=== PATIENT | female | born 1950 | race Caucasian/White ===

== ENCOUNTER 2019-01-03 20:22 | Inpatient (IN) | payer MEDICARE ==
[2019-01-03] MEDS ORDERED: SODIUM CHLORIDE 0.9% 1,000 ML IV STA (20:47)
--- NOTE | 2019-01-03 20:48 | ED ---
General Adult HPI - General Source: patient Mode of arrival: EMS <RajivkhushboomariajoseVeronicae D - Last Filed: 01/03/19 21:21> <SalesMarcella - Last Filed: 01/04/19 08:16> - General Chief complaint: Fall Stated complaint: Weakness Time Seen by Provider: 01/03/19 20:39 - History of Present Illness Initial comments: Dictation was produced using [employer] dictation software. please excuse any grammatical, word or spelling errors. Chief Complaint: Patient is 68-year-old female past medical history of Parkinson's disease, diabetes and hypertension. Patient reports that she fell several hours prior to arrival. History of Present Illness: Patient is 68-year-old female she has past medical history of Parkinson's disease, diabetes and hypertension. She fell at home. She lives at home by herself. She states that she felt dizzy prior to falling. Denies any head trauma or loss of consciousness. She was on the floor for several hours until she was able to get in contact with EMS. Patient is brought here by EMS. She was noted to have hypotension upon arrival. She has a history of hypertension. According to friends who are at bedside she's had multiple falls in the recent past. Patient has no significant plates at this time. She denies any shortness of breath or pain complaints at this time. The ROS documented in this emergency department record has been reviewed and confirmed by me. Those systems with pertinent positive or negative responses have been documented in the HPI. All other systems are other negative and/or noncontributory. PHYSICAL EXAM: General Impression: Alert and oriented x3, not in acute distress HEENT: Normocephalic atraumatic, extra-ocular movements intact, pupils equal and reactive to light bilaterally, mucous membranes moist. Cardiovascular: Heart regular rate and rhythm, S1&S2 audible, no murmurs, rubs or gallops Chest: Lungs clear to auscultation bilaterally, no rhonchi, no wheeze, no rales Abdomen: Bowel sounds present, abdomen soft, non-tender, non-distended, no organomegaly Musculoskeletal: Pulses present and equal in all extremities, no peripheral edema, all extremities ranged with no significant pain Motor: no focal deficits noted Neurological: CN II-XII grossly intact, no focal motor or sensory deficits noted Skin: Ecchymoses over the bilateral anterior knees Psych: Normal affect and mood ED course: 62 female who has been expressing multiple falls in the recent past presents with fall today. Patient is evaluated by EMS for low blood pressure. She is given 500 mL bolus. Upon arrival vital signs shows blood pressure 80/63, worse vital signs within acceptable limits. Physical examination shows well- appearing female with no gross deformities on physical examination. Patient care signed out to Dr. Sales (Vu Steve) - Related Data Home Medications Medication Instructions Recorded Confirmed Aspirin EC [Ecotrin Low Dose] 81 mg PO DAILY 01/03/19 01/03/19 Atenolol [Tenormin] 25 mg PO DAILY 01/03/19 01/03/19 Carbidopa-Levodopa 25-100 mg 1 dose PO DIRECTED 01/03/19 01/03/19 [Sinemet 25-100] Escitalopram [Lexapro] 20 mg PO DAILY 01/03/19 01/03/19 LORazepam [Ativan] 1 mg PO TID 01/03/19 01/03/19 Meloxicam [Mobic] 15 mg PO DAILY 01/03/19 01/03/19 Olmesartan/Hydrochlorothiazide 1 tab PO DAILY 01/03/19 01/03/19 [Benicar Hct 40-25 mg Tablet] Pantoprazole Sodium [Protonix] 40 mg PO DAILY 01/03/19 01/03/19 Rosuvastatin Calcium [Crestor] 10 mg PO DAILY 01/03/19 01/03/19 Valbenazine Tosylate [Ingrezza] 80 mg PO DAILY 01/03/19 01/03/19 Zolpidem [Ambien] 10 mg PO HS 01/03/19 01/03/19 metFORMIN HCL [Glucophage] 500 mg PO BID 01/03/19 01/03/19 Allergies Allergy/AdvReac Type Severity Reaction Status Date / Time codeine Allergy Nausea & Verified 01/03/19 20:45 Vomiting Penicillins Allergy Rash/Hives Verified 01/03/19 20:45 Review of Systems ROS Other: All systems not noted in ROS Statement are negative. <Vu Steve - Last Filed: 01/03/19 21:21> ROS Other: All systems not noted in ROS Statement are negative. <Marcella Sales - Last Filed: 01/04/19 08:16> ROS Statement: Those systems with pertinent positive or pertinent negative responses have been documented in the HPI. Past Medical History Past Medical History: Diabetes Mellitus, GERD/Reflux, Hypertension Additional Past Medical History / Comment(s): Parkinson's disease History of Any Multi-Drug Resistant Organisms: None Reported Past Surgical History: Section Past Psychological History: Depression Smoking Status: Former smoker Past Alcohol Use History: Occasional Past Drug Use History: None Reported <Vu Steve - Last Filed: 01/03/19 21:21> Course Vital Signs 01/03/19 01/03/19 01/03/19 20:30 21:15 23:00 Temperature 97.3 F L Pulse Rate 71 79 77 Pulse Rate [ It Infrastructure Manager ] Respiratory 16 18 18 Rate Blood Pressure 88/63 97/70 105/78 Blood Pressure [Right Arm] O2 Sat by Pulse 97 96 96 Oximetry 01/04/19 01/04/19 01:17 01:37 Temperature 98.4 F 98.9 F Pulse Rate 59 L Pulse Rate [ 65 It Infrastructure Manager ] Respiratory 18 17 Rate Blood Pressure 99/71 Blood Pressure 96/64 [Right Arm] O2 Sat by Pulse 96 99 Oximetry Medical Decision Making - Lab Data Result diagrams: 01/03/19 21:03 <Vu Steve - Last Filed: 01/03/19 21:21> - Lab Data Result diagrams: 01/04/19 02:46 01/04/19 02:46 <Marcella Sales P - Last Filed: 01/04/19 08:16> - Medical Decision Making Patient care was signed out to me by Dr. Steve, patient had arrived via EMS. Patient has a history of Parkinson's with multiple falls. Patient to follow home today and was on the floor for approximately 2 hours. On arrival patient no acute complaints, labs and imaging were ordered to evaluate for possible injury and rhabdomyolysis given that the patient was on the floor of hours Labs resulted with multiple very significant abnormalities including CPK of nearly 70,000, troponin greater than 12, creatinine of 4 I reviewed the patient's initial EKG which was obtained at 2115, rate is 67, rhythm is sinus there is a leftward deviation there are normal intervals, CO 156, QRS 76, QTC is prolonged at 534 there is no obvious ST elevations or depressions there is T-wave inversions laterally no evidence of acute ischemia or infarction. Given that significantly elevated troponin a repeat EKG was obtained, EKG was obtained at 2325, rate is 64 distal a leftward axis deviation, normal intervals, CO 160, QRS 82, QTc 509. T-wave inversions persist however there is no ST elevations or depressions and again no evidence of acute ischemia or infarction. (Marcella Sales) - Lab Data Lab Results 01/03/19 01/03/19 01/03/19 Range/Units 21:03 21:03 21:03 WBC 19.4 H (3.8-10.6) k/uL RBC 4.25 (3.80-5.40) m/uL Hgb 13.5 (11.4-16.0) gm/dL Hct 39.1 (34.0-46.0) % MCV 92.0 (80.0-100.0) fL MCH 31.8 (25.0-35.0) pg MCHC 34.6 (31.0-37.0) g/dL RDW 13.6 (11.5-15.5) % Plt Count 299 (150-450) k/uL Neutrophils % 89 % Lymphocytes % 6 % Monocytes % 5 % Eosinophils % 1 % Basophils % 0 % Neutrophils # 17.2 H (1.3-7.7) k/uL Lymphocytes # 1.1 (1.0-4.8) k/uL Monocytes # 0.9 (0-1.0) k/uL Eosinophils # 0.1 (0-0.7) k/uL Basophils # 0.0 (0-0.2) k/uL PT (9.0-12.0) sec INR (<1.2) Sodium 140 (137-145) mmol/L Potassium 4.9 (3.5-5.1) mmol/L Chloride 103 (98-107) mmol/L Carbon Dioxide 19 L (22-30) mmol/L Anion Gap 18 mmol/L BUN 59 H (7-17) mg/dL Creatinine 4.03 H (0.52-1.04) mg/dL Est GFR (CKD-EPI)AfAm 13 (>60 ml/min/1.73 sqM) Est GFR (CKD-EPI)NonAf 11 (>60 ml/min/1.73 sqM) Glucose 143 H (74-99) mg/dL Lactic Ac Sepsis Rflx Plasma Lactic Acid Jama 3.7 H* (0.7-2.0) mmol/L Calcium 9.3 (8.4-10.2) mg/dL Magnesium 2.6 H (1.6-2.3) mg/dL Total Bilirubin 0.5 (0.2-1.3) mg/dL AST 1363 H (14-36) U/L ALT 43 (9-52) U/L Alkaline Phosphatase 42 (38-126) U/L Creatine Kinase 96251 H* (30-135) U/L Troponin I (0.000-0.034) ng/mL Total Protein 6.5 (6.3-8.2) g/dL Albumin 4.5 (3.5-5.0) g/dL Urine Color Urine Appearance (Clear) Urine pH (5.0-8.0) Ur Specific [place] (1.001-1.035) Urine Protein (Negative) Urine Glucose (UA) (Negative) Urine Ketones (Negative) Urine Blood (Negative) Urine Nitrite (Negative) Urine Bilirubin (Negative) Urine Urobilinogen (<2.0) mg/dL Ur Leukocyte Esterase (Negative) Urine RBC (0-5) /hpf Urine WBC (0-5) /hpf Ur Squamous Epith Cells (0-4) /hpf Urine Bacteria (None) /hpf 01/03/19 01/03/19 01/03/19 Range/Units 21:03 21:03 21:42 WBC (3.8-10.6) k/uL RBC (3.80-5.40) m/uL Hgb (11.4-16.0) gm/dL Hct (34.0-46.0) % MCV (80.0-100.0) fL MCH (25.0-35.0) pg MCHC (31.0-37.0) g/dL RDW (11.5-15.5) % Plt Count (150-450) k/uL Neutrophils % % Lymphocytes % % Monocytes % % Eosinophils % % Basophils % % Neutrophils # (1.3-7.7) k/uL Lymphocytes # (1.0-4.8) k/uL Monocytes # (0-1.0) k/uL Eosinophils # (0-0.7) k/uL Basophils # (0-0.2) k/uL PT 10.4 (9.0-12.0) sec INR 1.0 (<1.2) Sodium (137-145) mmol/L Potassium (3.5-5.1) mmol/L Chloride (98-107) mmol/L Carbon Dioxide (22-30) mmol/L Anion Gap mmol/L BUN (7-17) mg/dL Creatinine (0.52-1.04) mg/dL Est GFR (CKD-EPI)AfAm (>60 ml/min/1.73 sqM) Est GFR (CKD-EPI)NonAf (>60 ml/min/1.73 sqM) Glucose (74-99) mg/dL Lactic Ac Sepsis Rflx Y Plasma Lactic Acid Jama (0.7-2.0) mmol/L Calcium (8.4-10.2) mg/dL Magnesium (1.6-2.3) mg/dL Total Bilirubin (0.2-1.3) mg/dL AST (14-36) U/L ALT (9-52) U/L Alkaline Phosphatase (38-126) U/L Creatine Kinase (30-135) U/L Troponin I 12.500 H* (0.000-0.034) ng/mL Total Protein (6.3-8.2) g/dL Albumin (3.5-5.0) g/dL Urine Color Urine Appearance (Clear) Urine pH (5.0-8.0) Ur Specific [place] (1.001-1.035) Urine Protein (Negative) Urine Glucose (UA) (Negative) Urine Ketones (Negative) Urine Blood (Negative) Urine Nitrite (Negative) Urine Bilirubin (Negative) Urine Urobilinogen (<2.0) mg/dL Ur Leukocyte Esterase (Negative) Urine RBC (0-5) /hpf Urine WBC (0-5) /hpf Ur Squamous Epith Cells (0-4) /hpf Urine Bacteria (None) /hpf 01/04/19 Range/Units 00:05 WBC (3.8-10.6) k/uL RBC (3.80-5.40) m/uL Hgb (11.4-16.0) gm/dL Hct (34.0-46.0) % MCV (80.0-100.0) fL MCH (25.0-35.0) pg MCHC (31.0-37.0) g/dL RDW (11.5-15.5) % Plt Count (150-450) k/uL Neutrophils % % Lymphocytes % % Monocytes % % Eosinophils % % Basophils % % Neutrophils # (1.3-7.7) k/uL Lymphocytes # (1.0-4.8) k/uL Monocytes # (0-1.0) k/uL Eosinophils # (0-0.7) k/uL Basophils # (0-0.2) k/uL PT (9.0-12.0) sec INR (<1.2) Sodium (137-145) mmol/L Potassium (3.5-5.1) mmol/L Chloride (98-107) mmol/L Carbon Dioxide (22-30) mmol/L Anion Gap mmol/L BUN (7-17) mg/dL Creatinine (0.52-1.04) mg/dL Est GFR (CKD-EPI)AfAm (>60 ml/min/1.73 sqM) Est GFR (CKD-EPI)NonAf (>60 ml/min/1.73 sqM) Glucose (74-99) mg/dL Lactic Ac Sepsis Rflx Plasma Lactic Acid Jama (0.7-2.0) mmol/L Calcium (8.4-10.2) mg/dL Magnesium (1.6-2.3) mg/dL Total Bilirubin (0.2-1.3) mg/dL AST (14-36) U/L ALT (9-52) U/L Alkaline Phosphatase (38-126) U/L Creatine Kinase (30-135) U/L Troponin I (0.000-0.034) ng/mL Total Protein (6.3-8.2) g/dL Albumin (3.5-5.0) g/dL Urine Color Light Red Urine Appearance Cloudy H (Clear) Urine pH 5.5 (5.0-8.0) Ur Specific [place] 1.017 (1.001-1.035) Urine Protein 2+ H (Negative) Urine Glucose (UA) Negative (Negative) Urine Ketones 1+ H (Negative) Urine Blood Moderate H (Negative) Urine Nitrite Negative (Negative) Urine Bilirubin Negative (Negative) Urine Urobilinogen <2.0 (<2.0) mg/dL Ur Leukocyte Esterase Small H (Negative) Urine RBC 2 (0-5) /hpf Urine WBC 6 H (0-5) /hpf Ur Squamous Epith Cells 2 (0-4) /hpf Urine Bacteria Few H (None) /hpf Disposition <Vu Steve - Last Filed: 01/03/19 21:21> <Marcella Sales P - Last Filed: 01/04/19 08:16> Clinical Impression: Rhabdomyolysis, Elevated troponin, Acute kidney failure, Fall Disposition: ADMITTED IP TO THIS HOSP Condition: Serious
[2019-01-03 21:16] LABS: Basophils % (A) 0 %; Eosinophils # (A) 0.1 k/uL (0-0.7); Eosinophils % (A) 1 %; HCT 39.1 % (34.0-46.0); HGB 13.5 gm/dL (11.4-16.0); Lymphocytes # (A) 1.1 k/uL (1.0-4.8); Lymphocytes % (A) 6 %; MCH 31.8 pg (25.0-35.0); MCHC 34.6 g/dL (31.0-37.0); Mean Platelet Volume 8.6; Monocytes # (A) 0.9 k/uL (0-1.0); Monocytes % (A) 5 %; Neutrophils # (A) 17.2 k/uL (1.3-7.7); Neutrophils % (A) 89 %; Platelet Count 299 k/uL (150-450); RBC 4.25 m/uL (3.80-5.40); RDW 13.6 % (11.5-15.5); WBC 19.4 k/uL (3.8-10.6)
[2019-01-03 21:23] LABS: Albumin 4.5 g/dL (3.5-5.0); Calcium 9.3 mg/dL (8.4-10.2); Magnesium 2.6 mg/dL (1.6-2.3); Potassium 4.9 mmol/L (3.5-5.1); Total Bilirubin 0.5 mg/dL (0.2-1.3); Total Protein 6.5 g/dL (6.3-8.2)
[2019-01-03 21:30] LABS: Prothrombin Time 10.4 sec (9.0-12.0)
[2019-01-03] MEDS: SODIUM CHLORIDE 0.9% 1,000 ML IV SCH (21:54)
--- NOTE | 2019-01-03 23:15 | CT ---
EXAM: CT Head Without Intravenous Contrast CLINICAL HISTORY: Pain TECHNIQUE: Axial computed tomography images of the head/brain without intravenous contrast. CTDI is 55.97 mGy and DLP is 1324.6 mGy-cm. This CT exam was performed using one or more of the following dose reduction techniques: automated exposure control, adjustment of the mA and/or kV according to patient size, and/or use of iterative reconstruction technique. COMPARISON: No relevant prior studies available. FINDINGS: Brain: No acute infarct, hemorrhage, mass or edema. No significant white matter disease. Ventricles: Unremarkable. No ventriculomegaly. Bones/joints: Unremarkable. No acute fracture. Soft tissues: Unremarkable. Sinuses: Mild mucosal thickening in the paranasal sinuses. Mastoid air cells: Unremarkable as visualized. No mastoid effusion. IMPRESSION: No acute findings. EXAM: CT Cervical Spine Without Intravenous Contrast CLINICAL HISTORY: Pain TECHNIQUE: Axial computed tomography images of the cervical spine without intravenous contrast. CTDI is 55.97 mGy and DLP is 1324.6 mGy-cm. This CT exam was performed using one or more of the following dose reduction techniques: automated exposure control, adjustment of the mA and/or kV according to patient size, and/or use of iterative reconstruction technique. COMPARISON: No relevant prior studies available. FINDINGS: Vertebrae: No acute fracture or traumatic malalignment of the cervical spine. Question tiny nondisplaced avulsion fracture of the posterior right first rib at the costovertebral junction (302-63). Discs/spinal canal/neural foramina: Multilevel degenerative changes. No spinal canal stenosis. Soft tissues: Unremarkable. IMPRESSION: No acute fracture or traumatic malalignment of the cervical spine.
--- NOTE | 2019-01-03 23:33 | XR ---
EXAM: XR Pelvis, 1 or 2 Views CLINICAL HISTORY: Pain TECHNIQUE: Frontal view of the pelvis. COMPARISON: No relevant prior studies available. FINDINGS: Bones/joints: No acute fracture or traumatic malalignment. Degenerative changes of the lower lumbar spine and both hips. Soft tissues: Unremarkable. Vasculature: Phleboliths noted within the pelvis IMPRESSION: No acute fracture or traumatic malalignment.
--- NOTE | 2019-01-03 23:34 | XR ---
EXAM: XR Chest, 1 View CLINICAL HISTORY: Pain TECHNIQUE: Frontal view of the chest. COMPARISON: No relevant prior studies available. FINDINGS: Lungs: Unremarkable. No consolidation. Pleural space: Unremarkable. No pneumothorax. Heart: Unremarkable. No cardiomegaly. Mediastinum: Unremarkable. Bones/joints: Unremarkable. IMPRESSION: Normal chest x-ray.
--- NOTE | 2019-01-03 23:34 | XR ---
EXAM: XR Left Knee, 3 views XR Right Knee, 3 views CLINICAL HISTORY: Pain TECHNIQUE: Three views of the bilateral knees. COMPARISON: No relevant prior studies available. FINDINGS: Bones/joints: Unremarkable. No acute fracture. No dislocation. Soft tissues: Unremarkable. IMPRESSION: Normal bilateral knee x-rays.
[2019-01-04 00:21] LABS: Appearance,Urine Cloudy (Clear); Bacteria,Urine Few /hpf; Bilirubin,Urine Negative (Negative); Blood,Urine Moderate (Negative); Color,Urine Light Red; Glucose,Urine (UA) Negative (Negative); Ketones,Urine 1+ (Negative); Leukocyte Esterase,Urine Small (Negative); Nitrite,Urine Negative (Negative); PH, Urine 5.5 (5.0-8.0); Protein,Urine 2+ (Negative); RBC,Urine 2 /hpf (0-5); Specific Gravity,Urine 1.017 (1.001-1.035); Squamous Epithelial Cell,Urine 2 /hpf (0-4); Urobilinogen,Urine <2.0 mg/dL (<2.0); WBC,Urine 6 /hpf (0-5)
[2019-01-04] MEDS ORDERED: NALOXONE 0.4 MG/ML 1 ML VIAL IV PRN (00:40)
[2019-01-04] MEDS: SODIUM CHLORIDE 0.9% 1,000 ML IV SCH ×5 (00:59→16:15)
[2019-01-04 02:00] LABS: Glucose,Whole Blood 115 mg/dL (75-99)
[2019-01-04 03:21] LABS: Basophils % (A) 0 %; Eosinophils % (A) 0 %; HCT 35.7 % (34.0-46.0); HGB 12.2 gm/dL (11.4-16.0); Lymphocytes % (A) 5 %; MCH 31.7 pg (25.0-35.0); MCHC 34.2 g/dL (31.0-37.0); MCV 92.8 fL (80.0-100.0); Mean Platelet Volume 8.8; Monocytes # (A) 1.1 k/uL (0-1.0); Monocytes % (A) 6 %; Neutrophils # (A) 16.8 k/uL (1.3-7.7); Neutrophils % (A) 88 %; Platelet Count 255 k/uL (150-450); RBC 3.84 m/uL (3.80-5.40); RDW 13.3 % (11.5-15.5)
[2019-01-04 03:35] LABS: Calcium 8.1 mg/dL (8.4-10.2)
[2019-01-04] MEDS ORDERED: SODIUM CHLORIDE 0.9% 1,000 ML IV ONE (05:36)
[2019-01-04] MEDS ORDERED: HEPARIN SODIUM,PORCINE 5,000 UNIT/ML 1 ML VIAL IV ONE (06:21)
[2019-01-04] MEDS ORDERED: HEPARIN SODIUM,PORCINE 5,000 UNIT/ML 1 ML VIAL IV PRN (06:21)
[2019-01-04] MEDS: HEPARIN SOD,PORK IN 0.45% NACL 25,000 UNIT in 0.45% NACL 1 250ML.BAG IV SCH (07:15)
[2019-01-04] MEDS: INSULIN ASPART (NovoLOG) 100 UNIT/ML VIAL SQ SCH ×4 (07:18→21:14)
[2019-01-04 07:24] LABS: Partial Thromboplastin Time 23.2 sec (22.0-30.0); Prothrombin Time 10.5 sec (9.0-12.0)
[2019-01-04 07:28] LABS: Glucose,Whole Blood 106 mg/dL (75-99)
[2019-01-04] MEDS ORDERED: HEPARIN SODIUM,PORCINE 5,000 UNIT/ML 1 ML VIAL SQ SCH (08:00)
[2019-01-04] MEDS: LORazepam 1 MG TAB PO SCH ×3 (08:05→21:16)
[2019-01-04] MEDS: ESCITALOPRAM 20 MG TAB PO SCH (08:05)
[2019-01-04] MEDS: PANTOPRAZOLE 40 MG TABLET PO SCH (08:05)
[2019-01-04] MEDS ORDERED: PANTOPRAZOLE 40 MG/10 ML VIAL IV SCH (09:00)
[2019-01-04] MEDS ORDERED: ATENOLOL 25 MG TAB PO SCH (09:00)
--- NOTE | 2019-01-04 10:45 | P.CNPUL ---
History of Present Illness Consult date: 01/04/19 Requesting physician: Anu Castro Reason for consult: other (Acute rhabdomyolysis) Chief complaint: Status post fall History of present illness: This is a 68-year-old female with known history of Parkinson's disease, hypertension, depression, degenerative joint disease, type 2 diabetes, hyperc holesterolemia, brought in by family members mostly because the patient was found on the floor, and could not get up on her own. Apparently the patient fell while she was walking at her own home, and she was done on the floor for about 8 hours. Patient lives by herself, and according to her she felt unsteady on her feet, and she fell down on her buttock. She had no head trauma, no loss of consciousness, she was found on the floor about 8 hours after her fall. Patient was brought in by EMS, and she was found initially hypotensive upon arrival. Although she has history of hypertension. Patient did have previous history of multiple falls in the past, but this one was the worse. Workup in the ER included chest x-ray, CT of the head and cervical spine, x-rays of the knees, pelvic x-rays, and EKG. Her chest x-ray was normal. CT of the head and cervical spine was negative. X-rays of the knees were normal. Pelvic x-ray showed no evidence of fracture or malalignment. EKG showed mostly normal sinus rhythm, T-wave inversion suspicious for anterior ischemia. Labs in the ER were quite abnormal showing evidence of leukocytosis with WBC count of 19.0. BUN was noted to be 61 creatinine 4.04. CPK 65830, troponin was significantly elevated at 17.7, bicarb was 18, anion gap of 15. Patient was given significant amount of fluids in the ER, placed on 0.9 normal saline at 200 mL/h, admitted to the intensive care unit, and this consult was initiated. During my evaluation, patient was noted to be in no form of distress, very pleasant, and was able to give me a good history as noted above. One family member is at bedside Review of Systems CONSTITUTIONAL: Mostly symptoms of weakness, and difficulty with ambulation. No weight loss. HEENT. Denies headache or blurred vision, denies any earache or sore throat. Denies any vertigo. EYES: No diplopia, no blurred vision, no lid lag.. EARS, NOSE, MOUTH, THROAT, and FACE: No sore throat, no earache. Pulmonary: Denies any cough wheezing or shortness of breath or chest pain. CARDIOVASCULAR: Denies chest pain, palpitation, syncope. GASTROINTESTINAL: Denies vomiting no nausea abdominal pain melena or h ematemesis. GENITOURINARY: Denies any dysuria frequency urgency or hematuria. INTEGUMENT/denies any rashes, denies any itching. HEMATOLOGIC/LYMPHATIC: Denies any clotting bleeding or bruising. MUSCULOSKELTAL: History of degenerative joint disease, and history of Parkinson's disease. NEURLOGICAL: History of Parkinson's disease, no history of dementia. BEHAVIORAL/PSYCH: Denies any symptoms of active depression had remote history of depression. ENDOCRINE: Denies any heat or cold intolerance. Past Medical History Past Medical History: Diabetes Mellitus, GERD/Reflux, Hypertension Additional Past Medical History / Comment(s): Parkinson's disease History of Any Multi-Drug Resistant Organisms: None Reported Past Surgical History: Section Additional Past Anesthesia/Blood Transfusion Reaction / Comment(s): Mild Sleep Apnea per patient Past Psychological History: Depression Smoking Status: Former smoker Past Alcohol Use History: Occasional Additional Past Alcohol Use History / Comment(s): Pt states less then 4 drinks a week Past Drug Use History: None Reported Medications and Allergies Home Medications Medication Instructions Recorded Confirmed Type Aspirin EC [Ecotrin Low Dose] 81 mg PO DAILY 01/03/19 01/03/19 History Atenolol [Tenormin] 25 mg PO DAILY 01/03/19 01/03/19 History Carbidopa-Levodopa 25-100 mg 1 dose PO DIRECTED 01/03/19 01/03/19 History [Sinemet 25-100] Escitalopram [Lexapro] 20 mg PO DAILY 01/03/19 01/03/19 History LORazepam [Ativan] 1 mg PO TID 01/03/19 01/03/19 History Meloxicam [Mobic] 15 mg PO DAILY 01/03/19 01/03/19 History Olmesartan/Hydrochlorothiazide 1 tab PO DAILY 01/03/19 01/03/19 History [Benicar Hct 40-25 mg Tablet] Pantoprazole Sodium [Protonix] 40 mg PO DAILY 01/03/19 01/03/19 History Rosuvastatin Calcium [Crestor] 10 mg PO DAILY 01/03/19 01/03/19 History Valbenazine Tosylate [Ingrezza] 80 mg PO DAILY 01/03/19 01/03/19 History Zolpidem [Ambien] 10 mg PO HS 01/03/19 01/03/19 History metFORMIN HCL [Glucophage] 500 mg PO BID 01/03/19 01/03/19 History Allergies Allergy/AdvReac Type Severity Reaction Status Date / Time codeine Allergy Nausea & Verified 01/03/19 20:45 Vomiting Penicillins Allergy Rash/Hives Verified 01/03/19 20:45 Physical Exam Vitals: Vital Signs Temp Pulse Pulse Resp BP BP Pulse Ox 01/04/19 07:30 54 L 23 85/64 93 L 01/04/19 07:00 56 L 22 88/69 94 L 01/04/19 06:30 54 L 21 94/63 95 01/04/19 06:00 58 L 22 91/62 95 01/04/19 05:30 59 L 22 91/63 95 01/04/19 05:00 61 21 98/65 95 01/04/19 04:30 59 L 18 101/68 95 01/04/19 04:00 98.1 F 63 23 91/63 95 01/04/19 03:30 58 L 21 85/62 96 01/04/19 03:00 60 21 99/65 96 01/04/19 02:30 64 16 96/64 94 L 01/04/19 02:00 98.4 F 64 24 98/72 95 01/04/19 01:49 22 01/04/19 01:37 98.9 F 59 L 17 99/71 99 01/04/19 01:17 98.4 F 65 18 96/64 96 01/03/19 23:00 77 18 105/78 96 01/03/19 21:15 79 18 97/70 96 01/03/19 20:30 97.3 F L 71 16 88/63 97 Intake and Output 01/03/19 01/04/19 01/04/19 22:59 06:59 14:59 Intake Total 2000 200 Output Total 90 10 Balance 1910 190 Intake: IV 1800 200 Sodium Chloride 0.9% 1, 1800 200 000 ml @ 999 mls/hr IV . Q1H1M STA Rx#:[id number] Oral 200 Output: Urine 90 10 Other: Voiding Method Indwelling Catheter Weight 63.503 kg General exam: Revealed a 68-year-old female, very pleasant, in no form of respiratory distress. HEENT: Normocephalic atraumatic, extra-ocular movements intact, pupils equal and reactive to light bilaterally, mucous membranes moist. Cardiovascular: Normal S1 and S2, regular rate and rhythm, no S3 gallop, no murmur. Chest: Lungs: Symmetrical chest expansion, clear breath sound bilaterally no crackles or rhonchi or wheezes. Abdomen: Soft nontender no megaly no rebound no guarding positive bowel sounds. Extremities: Pulses present and equal in all extremities, no peripheral edema, all extremities ranged with no significant pain Motor: no focal deficits noted Neurological: CN II-XII grossly intact, no focal motor or sensory deficits noted, patient is alert oriented 3. Skin: Ecchymoses over the bilateral anterior knees Psych: Normal mood, affect, normal mental status examination. Lymphatics: No lymphadenopathy. Results - Laboratory Findings CBC and BMP: 01/04/19 02:46 01/04/19 02:46 PT/INR, D-dimer PT 10.5 sec (9.0-12.0) 01/04/19 06:46 INR 1.0 (<1.2) 01/04/19 06:46 Abnormal lab findings: Abnormal Labs 01/03/19 01/03/19 01/03/19 21:03 21:03 21:03 WBC 19.4 H Neutrophils # 17.2 H Monocytes # Carbon Dioxide 19 L BUN 59 H Creatinine 4.03 H Glucose 143 H POC Glucose (mg/dL) Plasma Lactic Acid Jama 3.7 H* Calcium Magnesium 2.6 H AST 1363 H Creatine Kinase 18340 H* Troponin I Urine Appearance Urine Protein Urine Ketones Urine Blood Ur Leukocyte Esterase Urine WBC Urine Bacteria 01/03/19 01/04/19 01/04/19 21:03 00:05 01:48 WBC Neutrophils # Monocytes # Carbon Dioxide BUN Creatinine Glucose POC Glucose (mg/dL) 115 H Plasma Lactic Acid Jama Calcium Magnesium AST Creatine Kinase Troponin I 12.500 H* Urine Appearance Cloudy H Urine Protein 2+ H Urine Ketones 1+ H Urine Blood Moderate H Ur Leukocyte Esterase Small H Urine WBC 6 H Urine Bacteria Few H 01/04/19 01/04/19 01/04/19 02:46 02:46 02:46 WBC 19.0 H Neutrophils # 16.8 H Monocytes # 1.1 H Carbon Dioxide BUN Creatinine Glucose POC Glucose (mg/dL) Plasma Lactic Acid Jama Calcium Magnesium AST Creatine Kinase 74657 H* Troponin I 17.700 H* Urine Appearance Urine Protein Urine Ketones Urine Blood Ur Leukocyte Esterase Urine WBC Urine Bacteria 01/04/19 01/04/19 01/04/19 02:46 06:46 06:46 WBC Neutrophils # Monocytes # Carbon Dioxide 18 L BUN 61 H Creatinine 4.04 H Glucose 100 H POC Glucose (mg/dL) Plasma Lactic Acid Jama Calcium 8.1 L Magnesium AST Creatine Kinase 33727 H* Troponin I 17.400 H* Urine Appearance Urine Protein Urine Ketones Urine Blood Ur Leukocyte Esterase Urine WBC Urine Bacteria 01/04/19 07:17 WBC Neutrophils # Monocytes # Carbon Dioxide BUN Creatinine Glucose POC Glucose (mg/dL) 106 H Plasma Lactic Acid Jama Calcium Magnesium AST Creatine Kinase Troponin I Urine Appearance Urine Protein Urine Ketones Urine Blood Ur Leukocyte Esterase Urine WBC Urine Bacteria - Diagnostic Findings Chest x-ray: image reviewed (As noted in HPI.) Additional studies: Multiple studies were reviewed including CT of the head and cervical spine, x- rays of the knees and the pelvic area, and EKG. Please refer to HPI. Assessment and Plan Assessment: Impression: 1 acute rhabdomyolysis. Secondary to fall. Secondary to underlying Parkinson's disease. 2 possible acute non-ST elevation myocardial infarction 3 acute kidney injury, secondary to acute rhabdomyolysis. 4 history of Parkinson's disease, and difficulty ambulating on her own. 5 history of hypercholesterolemia 6 history of type 2 diabetes. 7 history of benign essential hypertension 8 history of GERD Recommendation: Agree with the present treatment plan including IV fluids, close monitoring of her sugars, renal profile, continue her usual meds for Parkinson's disease, insulin subcu as per protocol based on Accu-Cheks. Continue heparin for elevated troponin, and this is being addressed by cardiology. We'll continue to monitor in the ICU, and will follow closely. Discussed her condition with cardiology on the case. Time with Patient: Greater than 30
[2019-01-04 12:02] LABS: Glucose,Whole Blood 116 mg/dL (75-99)
--- NOTE | 2019-01-04 12:08 | P.HPIM ---
History of Present Illness H&P Date: 01/04/19 Chief Complaint: Rhabdomyolysis This is 68 years old female with past medical history significant for Parkinson disease presents to the emergency department after sustaining fall at home. Patient was able to make a phone call and call 911 few hours after falling on the floor and was brought into the emergency department with multiple bruises on her body worse on the left knee. Patient was alert awake and oriented at baseline mental status able to provide information and still at baseline mental status. Patient was on the floor for several hours and sure about the exact time of fall denied loss of consciousness and think that it was mechanical to start with. Patient denied head trauma. Patient had multiple falls in the past due to her Parkinson disease but nothing significant to the point where she was on the floor a few hours. Patient is denying and recent urinary tract infection recent upper respiratory symptoms including chest pain shortness breath nausea vomiting or nasal drainage. Patient denied any recent change in her medication. Patient is denying constitutional symptoms including night sweats low-grade fever or weight loss. Patient currently is improved and saying that she feels much improved since admission. Patient was admitted to the intensive care unit due to diagnosis of acute kidney injury with rhabdomyolysis and was started on a ggressive IV hydration and electrolyte replacement protocol. Patient is denying tobacco alcohol or drug abuse Review of Systems All 14 systems reviewed and negative except as above Past Medical History Past Medical History: Diabetes Mellitus, GERD/Reflux, Hypertension Additional Past Medical History / Comment(s): Parkinson's disease History of Any Multi-Drug Resistant Organisms: None Reported Past Surgical History: Section Additional Past Anesthesia/Blood Transfusion Reaction / Comment(s): Mild Sleep Apnea per patient Past Psychological History: Depression Smoking Status: Former smoker Past Alcohol Use History: Occasional Additional Past Alcohol Use History / Comment(s): Pt states less then 4 drinks a week Past Drug Use History: None Reported Medications and Allergies Home Medications Medication Instructions Recorded Confirmed Type Aspirin EC [Ecotrin Low Dose] 81 mg PO DAILY 01/03/19 01/03/19 History Atenolol [Tenormin] 25 mg PO DAILY 01/03/19 01/03/19 History Carbidopa-Levodopa 25-100 mg 1 dose PO DIRECTED 01/03/19 01/03/19 History [Sinemet 25-100] Escitalopram [Lexapro] 20 mg PO DAILY 01/03/19 01/03/19 History LORazepam [Ativan] 1 mg PO TID 01/03/19 01/03/19 History Meloxicam [Mobic] 15 mg PO DAILY 01/03/19 01/03/19 History Olmesartan/Hydrochlorothiazide 1 tab PO DAILY 01/03/19 01/03/19 History [Benicar Hct 40-25 mg Tablet] Pantoprazole Sodium [Protonix] 40 mg PO DAILY 01/03/19 01/03/19 History Rosuvastatin Calcium [Crestor] 10 mg PO DAILY 01/03/19 01/03/19 History Valbenazine Tosylate [Ingrezza] 80 mg PO DAILY 01/03/19 01/03/19 History Zolpidem [Ambien] 10 mg PO HS 01/03/19 01/03/19 History metFORMIN HCL [Glucophage] 500 mg PO BID 01/03/19 01/03/19 History Allergies Allergy/AdvReac Type Severity Reaction Status Date / Time codeine Allergy Nausea & Verified 01/03/19 20:45 Vomiting Penicillins Allergy Rash/Hives Verified 01/03/19 20:45 Physical Exam Vitals: Vital Signs Temp Pulse Pulse Resp BP BP Pulse Ox 01/04/19 11:30 60 22 99/69 94 L 01/04/19 11:00 58 L 25 H 90/66 91 L 01/04/19 10:30 55 L 24 99/66 01/04/19 10:00 57 L 27 H 100/66 01/04/19 09:30 66 18 107/74 95 01/04/19 09:00 61 23 91/68 94 L 01/04/19 08:30 56 L 22 94/63 93 L 01/04/19 08:00 98.3 F 57 L 23 91/67 94 L 01/04/19 07:30 54 L 23 85/64 93 L 01/04/19 07:00 56 L 22 88/69 94 L 01/04/19 06:30 54 L 21 94/63 95 01/04/19 06:00 58 L 22 91/62 95 01/04/19 05:30 59 L 22 91/63 95 01/04/19 05:00 61 21 98/65 95 01/04/19 04:30 59 L 18 101/68 95 01/04/19 04:00 98.1 F 63 23 91/63 95 01/04/19 03:30 58 L 21 85/62 96 01/04/19 03:00 60 21 99/65 96 01/04/19 02:30 64 16 96/64 94 L 01/04/19 02:00 98.4 F 64 24 98/72 95 01/04/19 01:49 22 01/04/19 01:37 98.9 F 59 L 17 99/71 99 01/04/19 01:17 98.4 F 65 18 96/64 96 01/03/19 23:00 77 18 105/78 96 01/03/19 21:15 79 18 97/70 96 01/03/19 20:30 97.3 F L 71 16 88/63 97 Intake and Output 01/03/19 01/04/19 01/04/19 22:59 06:59 14:59 Intake Total 2000 800 Output Total 90 50 Balance 1910 750 Intake: IV 1800 800 Sodium Chloride 0.9% 1, 600 000 ml @ 200 mls/hr IV . Q5H RONAL Rx#:[id number] Sodium Chloride 0.9% 1, 1800 200 000 ml @ 999 mls/hr IV . Q1H1M STA Rx#:[id number] Oral 200 Output: Urine 90 50 Other: Voiding Method Indwelling Catheter # Bowel Movements 1 Weight 63.503 kg 63.503 kg Gen.: in stated age, no acute distress Heart: Normal S1-S2 Lungs: Clear to auscultation bilaterally Abdomen: Soft, no tenderness, positive bowel sounds in all 4 quadrant no guarding or rebound Skin: No new rash, multiple bruises on the entire body Psych: Alert and oriented 3 Neuro: No focal deficit Left knee swelling with bruising still intact range of motion with some limitation due to discomfort pulses are positive bilaterally Results CBC & Chem 7: 01/04/19 02:46 01/04/19 02:46 Labs: Abnormal Lab Results - Last 24 Hours (Table) 01/03/19 01/03/19 01/03/19 Range/Units 21:03 21:03 21:03 WBC 19.4 H (3.8-10.6) k/uL Neutrophils # 17.2 H (1.3-7.7) k/uL Monocytes # (0-1.0) k/uL Carbon Dioxide 19 L (22-30) mmol/L BUN 59 H (7-17) mg/dL Creatinine 4.03 H (0.52-1.04) mg/dL Glucose 143 H (74-99) mg/dL POC Glucose (mg/dL) (75-99) mg/dL Plasma Lactic Acid Jama 3.7 H* (0.7-2.0) mmol/L Calcium (8.4-10.2) mg/dL Magnesium 2.6 H (1.6-2.3) mg/dL AST 1363 H (14-36) U/L Creatine Kinase 55330 H* (30-135) U/L Troponin I (0.000-0.034) ng/mL Urine Appearance (Clear) Urine Protein (Negative) Urine Ketones (Negative) Urine Blood (Negative) Ur Leukocyte Esterase (Negative) Urine WBC (0-5) /hpf Urine Bacteria (None) /hpf 01/03/19 01/04/19 01/04/19 Range/Units 21:03 00:05 01:48 WBC (3.8-10.6) k/uL Neutrophils # (1.3-7.7) k/uL Monocytes # (0-1.0) k/uL Carbon Dioxide (22-30) mmol/L BUN (7-17) mg/dL Creatinine (0.52-1.04) mg/dL Glucose (74-99) mg/dL POC Glucose (mg/dL) 115 H (75-99) mg/dL Plasma Lactic Acid Jama (0.7-2.0) mmol/L Calcium (8.4-10.2) mg/dL Magnesium (1.6-2.3) mg/dL AST (14-36) U/L Creatine Kinase (30-135) U/L Troponin I 12.500 H* (0.000-0.034) ng/mL Urine Appearance Cloudy H (Clear) Urine Protein 2+ H (Negative) Urine Ketones 1+ H (Negative) Urine Blood Moderate H (Negative) Ur Leukocyte Esterase Small H (Negative) Urine WBC 6 H (0-5) /hpf Urine Bacteria Few H (None) /hpf 01/04/19 01/04/19 01/04/19 Range/Units 02:46 02:46 02:46 WBC 19.0 H (3.8-10.6) k/uL Neutrophils # 16.8 H (1.3-7.7) k/uL Monocytes # 1.1 H (0-1.0) k/uL Carbon Dioxide (22-30) mmol/L BUN (7-17) mg/dL Creatinine (0.52-1.04) mg/dL Glucose (74-99) mg/dL POC Glucose (mg/dL) (75-99) mg/dL Plasma Lactic Acid Jama (0.7-2.0) mmol/L Calcium (8.4-10.2) mg/dL Magnesium (1.6-2.3) mg/dL AST (14-36) U/L Creatine Kinase 10385 H* (30-135) U/L Troponin I 17.700 H* (0.000-0.034) ng/mL Urine Appearance (Clear) Urine Protein (Negative) Urine Ketones (Negative) Urine Blood (Negative) Ur Leukocyte Esterase (Negative) Urine WBC (0-5) /hpf Urine Bacteria (None) /hpf 01/04/19 01/04/19 01/04/19 Range/Units 02:46 06:46 06:46 WBC (3.8-10.6) k/uL Neutrophils # (1.3-7.7) k/uL Monocytes # (0-1.0) k/uL Carbon Dioxide 18 L (22-30) mmol/L BUN 61 H (7-17) mg/dL Creatinine 4.04 H (0.52-1.04) mg/dL Glucose 100 H (74-99) mg/dL POC Glucose (mg/dL) (75-99) mg/dL Plasma Lactic Acid Jama (0.7-2.0) mmol/L Calcium 8.1 L (8.4-10.2) mg/dL Magnesium (1.6-2.3) mg/dL AST (14-36) U/L Creatine Kinase 59001 H* (30-135) U/L Troponin I 17.400 H* (0.000-0.034) ng/mL Urine Appearance (Clear) Urine Protein (Negative) Urine Ketones (Negative) Urine Blood (Negative) Ur Leukocyte Esterase (Negative) Urine WBC (0-5) /hpf Urine Bacteria (None) /hpf 01/04/19 Range/Units 07:17 WBC (3.8-10.6) k/uL Neutrophils # (1.3-7.7) k/uL Monocytes # (0-1.0) k/uL Carbon Dioxide (22-30) mmol/L BUN (7-17) mg/dL Creatinine (0.52-1.04) mg/dL Glucose (74-99) mg/dL POC Glucose (mg/dL) 106 H (75-99) mg/dL Plasma Lactic Acid Jama (0.7-2.0) mmol/L Calcium (8.4-10.2) mg/dL Magnesium (1.6-2.3) mg/dL AST (14-36) U/L Creatine Kinase (30-135) U/L Troponin I (0.000-0.034) ng/mL Urine Appearance (Clear) Urine Protein (Negative) Urine Ketones (Negative) Urine Blood (Negative) Ur Leukocyte Esterase (Negative) Urine WBC (0-5) /hpf Urine Bacteria (None) /hpf Microbiology - Last 24 Hours (Table) 01/04/19 00:05 Urine Culture - Preliminary Urine,Voided Thrombosis Risk Factor Assmnt - Choose All That Apply Any of the Below Risk Factors Present?: No Each Risk Factor Represents 2 Points: Age 61-74 years Thrombosis Risk Factor Assessment Total Risk Factor Score: 2 Thrombosis Risk Factor Assessment Level: Low Risk Assessment and Plan Assessment: 1. Rhabdomyolysis. 2. Generalized weakness with frequent falls and multiple bruising. 3. Left knee swelling rule out effusion. 4. Acute kidney injury secondary to above. 5. Leukocytosis without left shift. 6. Parkinson disease, advanced. 7. Severe debility and deconditioning. 8. Hyperlipidemia. 9. Diabetes mellitus type 2 area 10. Hypertension. We'll continue with aggressive IV hydration I provided patients with one liter normal saline to be followed by 200 mL/h and monitor urine output closely consider further boluses based on clinical progress replace electrolytes and repeat chemistry this afternoon. We'll avoid nephrotoxic medication resume home medication with holding parameters placed patient's on insulin sliding scale during this hospital stay continue with ICU monitoring. I would like to order 2-D echo to rule out any wall motion abnormality given the patient's frequent falls which is most likely related to 2 Parkinson disease but I would like to rule out any syncopal episode at the same time as patient is poor historian. I would like to have physical therapy evaluated the patient during this hospital stay and consider consultation for physical medicine and rehab as patient may represent perfect candidate for inpatient rehabitation program given the fact that patient is from home has been declining and may benefit from rehabilitation to go back to home environment. Prognosis remained guarded at this point
[2019-01-04] MEDS: CARBIDOPA-LEVODOPA 25-100 MG 1 EACH TAB PO SCH ×2 (12:53→21:15)
--- NOTE | 2019-01-04 12:59 | P.CRDCN ---
<Sofie Esteves - Last Filed: 01/04/19 12:56> History of Present Illness History of present illness: This is Sofie Esteves PA-C dictating a consult on this patient The patient was interviewed and examined by me IMPRESSION / ASSESSMENT: Rhabdomyolysis Elevated troponins likely secondary to rhabdomyolysis and crossover of very high creatinine kinase, ratio of CPK: troponin of 3:1 does not support ischemia, however we cannot completely rule out previous simultaneous myocardial injury Hypertension Dyslipidemia PLAN: Hold atenolol due to hypotension Hold off on statins due to rhabdomyolysis Continue hydration with IV fluids 2-D echo and Doppler to evaluate cardiac structure and function HPI Patient is a 68-year-old female with a past medical history of Parkinson's disease, diabetes, and hypertension who presented to the emergency department after a fall. Yesterday she fell at home when getting up out of a chair. States she did not lose consciousness, remembers the entire event, and landed on her bottom. Had no preceding dizziness, lightheadedness, chest pain, palpitations, shortness of breath. She laid on the ground for several hours before calling for help. States she's had multiple falls in the past related to weakness. Upon admission she was found to have [place]dom[place] [address], creatinine of 4.04, and elevated troponin 17.7. EKG showed diffuse T-wave inversions. Patient seen and examined resting in bed. Denies any symptoms of chest pain, s hortness of breath, palpitations, dizziness, lightheadedness Denies any history of heart problems or syncope. She is a nonsmoker. ROS: No fevers, chills or rigors, no cough, phlegm or expectoration, no nausea, vomiting or diarrhea, no hematuria, dysuria, no skin lesions. EXAMINATION: Patient's blood pressure has been in the 90s to 100 systolic over 60s diastolic, heart rates in the 50s to 60s, respirations 20, oxygen saturation 95% on room air Patient seen and examined resting in bed, in no acute distress Breath sounds clear to auscultation bilaterally Heart is regular, +S1, +S2, no murmurs appreciated No lower extremity edema No elevated JVD REVIEW OF LABS, ECG & MEDICAL DATA EKG shows sinus rhythm with diffuse T-wave inversions WBC 19, hemoglobin 12.2, potassium 5.0, BUN 61, creatinine 4.04, creatinine kinase 11706, troponin 17.4 Past Medical History Past Medical History: Diabetes Mellitus, GERD/Reflux, Hypertension Additional Past Medical History / Comment(s): Parkinson's disease History of Any Multi-Drug Resistant Organisms: None Reported Past Surgical History: Section Additional Past Anesthesia/Blood Transfusion Reaction / Comment(s): Mild Sleep Apnea per patient Past Psychological History: Depression Smoking Status: Former smoker Past Alcohol Use History: Occasional Additional Past Alcohol Use History / Comment(s): Pt states less then 4 drinks a week Past Drug Use History: None Reported Medications and Allergies Home Medications Medication Instructions Recorded Confirmed Type Aspirin EC [Ecotrin Low Dose] 81 mg PO DAILY 01/03/19 01/03/19 History Atenolol [Tenormin] 25 mg PO DAILY 01/03/19 01/03/19 History Carbidopa-Levodopa 25-100 mg 1 dose PO DIRECTED 01/03/19 01/03/19 History [Sinemet 25-100] Escitalopram [Lexapro] 20 mg PO DAILY 01/03/19 01/03/19 History LORazepam [Ativan] 1 mg PO TID 01/03/19 01/03/19 History Meloxicam [Mobic] 15 mg PO DAILY 01/03/19 01/03/19 History Olmesartan/Hydrochlorothiazide 1 tab PO DAILY 01/03/19 01/03/19 History [Benicar Hct 40-25 mg Tablet] Pantoprazole Sodium [Protonix] 40 mg PO DAILY 01/03/19 01/03/19 History Rosuvastatin Calcium [Crestor] 10 mg PO DAILY 01/03/19 01/03/19 History Valbenazine Tosylate [Ingrezza] 80 mg PO DAILY 01/03/19 01/03/19 History Zolpidem [Ambien] 10 mg PO HS 01/03/19 01/03/19 History metFORMIN HCL [Glucophage] 500 mg PO BID 01/03/19 01/03/19 History Allergies Allergy/AdvReac Type Severity Reaction Status Date / Time codeine Allergy Nausea & Verified 01/03/19 20:45 Vomiting Penicillins Allergy Rash/Hives Verified 01/03/19 20:45 Physical Exam Vitals: Vital Signs Temp Pulse Pulse Resp BP BP Pulse Ox 01/04/19 10:30 55 L 24 99/66 01/04/19 10:00 57 L 27 H 100/66 01/04/19 09:30 66 18 107/74 95 01/04/19 09:00 61 23 91/68 94 L 01/04/19 08:30 56 L 22 94/63 93 L 01/04/19 08:00 98.3 F 57 L 23 91/67 94 L 01/04/19 07:30 54 L 23 85/64 93 L 01/04/19 07:00 56 L 22 88/69 94 L 01/04/19 06:30 54 L 21 94/63 95 01/04/19 06:00 58 L 22 91/62 95 01/04/19 05:30 59 L 22 91/63 95 01/04/19 05:00 61 21 98/65 95 01/04/19 04:30 59 L 18 101/68 95 01/04/19 04:00 98.1 F 63 23 91/63 95 01/04/19 03:30 58 L 21 85/62 96 01/04/19 03:00 60 21 99/65 96 01/04/19 02:30 64 16 96/64 94 L 01/04/19 02:00 98.4 F 64 24 98/72 95 01/04/19 01:49 22 01/04/19 01:37 98.9 F 59 L 17 99/71 99 01/04/19 01:17 98.4 F 65 18 96/64 96 01/03/19 23:00 77 18 105/78 96 01/03/19 21:15 79 18 97/70 96 01/03/19 20:30 97.3 F L 71 16 88/63 97 Intake and Output 01/03/19 01/04/19 01/04/19 22:59 06:59 14:59 Intake Total 2000 800 Output Total 90 50 Balance 1910 750 Intake: IV 1800 800 Sodium Chloride 0.9% 1, 600 000 ml @ 200 mls/hr IV . Q5H [facility] Rx#:[id number] Sodium Chloride 0.9% 1, 1800 200 000 ml @ 999 mls/hr IV . Q1H1M [facility] Rx#:[id number] Oral 200 Output: Urine 90 50 Other: Voiding Method Indwelling Catheter # Bowel Movements 1 Weight 63.503 kg Results 01/04/19 02:46 01/04/19 02:46 Cardiac Enzymes 01/03/19 01/03/19 01/04/19 Range/Units 21:03 21:03 02:46 AST 1363 H (14-36) U/L Troponin I 12.500 H* 17.700 H* (0.000-0.034) ng/mL 01/04/19 Range/Units 06:46 AST (14-36) U/L Troponin I 17.400 H* (0.000-0.034) ng/mL Coagulation 01/03/19 01/04/19 Range/Units 21:03 06:46 PT 10.4 10.5 (9.0-12.0) sec APTT 23.2 (22.0-30.0) sec CBC 01/03/19 01/04/19 Range/Units 21:03 02:46 WBC 19.4 H 19.0 H (3.8-10.6) k/uL RBC 4.25 3.84 (3.80-5.40) m/uL Hgb 13.5 12.2 (11.4-16.0) gm/dL Hct 39.1 35.7 (34.0-46.0) % Plt Count 299 255 (150-450) k/uL Comprehensive Metabolic Panel 01/03/19 01/04/19 Range/Units 21:03 02:46 Sodium 140 140 (137-145) mmol/L Potassium 4.9 5.0 (3.5-5.1) mmol/L Chloride 103 107 (98-107) mmol/L Carbon Dioxide 19 L 18 L (22-30) mmol/L BUN 59 H 61 H (7-17) mg/dL Creatinine 4.03 H 4.04 H (0.52-1.04) mg/dL Glucose 143 H 100 H (74-99) mg/dL Calcium 9.3 8.1 L (8.4-10.2) mg/dL AST 1363 H (14-36) U/L ALT 43 (9-52) U/L Alkaline Phosphatase 42 (38-126) U/L Total Protein 6.5 (6.3-8.2) g/dL Albumin 4.5 (3.5-5.0) g/dL Current Medications Generic Name Dose Route Start Last Admin Trade Name Freq PRN Reason Stop Dose Admin Atenolol 25 mg 01/04/19 09:00 Tenormin PO DAILY [facility] Carbidopa/Levodopa each 01/04/19 05:30 Sinemet 25-100 PO DIRECTED [facility] Carbidopa/Levodopa 0.5 each 01/04/19 09:00 Sinemet Er 25-100 PO 01/06/19 02:00 BID [facility] Escitalopram Oxalate 20 mg 01/04/19 09:00 01/04/19 08:05 Lexapro PO 20 mg DAILY [facility] Administration Heparin Sodium (Porcine) 0 unit 01/04/19 06:21 Heparin IV PER PROTOCOL PRN Low PTT Protocol Sodium Chloride 1,000 mls @ 200 mls/hr 01/03/19 21:30 01/04/19 08:06 Saline 0.9% IV 100 mls/hr .Q5H [facility] Administration Sodium Chloride 1,000 mls @ 100 mls/hr 01/03/19 22:45 01/04/19 06:37 Saline 0.9% IV 200 mls/hr .Q10H [facility] Administration Heparin Sodium/Sodium Chloride 250 mls @ 7.62 mls/hr 01/04/19 06:30 01/04/19 07:15 25,000 unit/ Sodium Chloride IV 12 units/kg/hr .Q24H [facility] 7.62 mls/hr Administration Protocol 12 UNITS/KG/HR Insulin Aspart 0 unit 01/04/19 07:30 01/04/19 07:18 Novolog SQ Not Given ACHS [facility] Protocol Lorazepam 1 mg 01/04/19 09:00 01/04/19 08:05 Ativan PO 1 mg TID [facility] Administration Naloxone HCl 0.2 mg 01/04/19 00:40 Narcan IV Q2M PRN Opioid Reversal Pantoprazole Sodium 40 mg 01/04/19 09:00 01/04/19 08:05 Protonix PO 40 mg DAILY [facility] Administration Intake and Output 01/03/19 01/04/19 01/04/19 22:59 06:59 14:59 Intake Total 2000 800 Output Total 90 50 Balance 1910 750 Intake: IV 1800 800 Sodium Chloride 0.9% 1, 600 000 ml @ 200 mls/hr IV . Q5H [facility] Rx#:[id number] Sodium Chloride 0.9% 1, 1800 200 000 ml @ 999 mls/hr IV . Q1H1M [facility] Rx#:[id number] Oral 200 Output: Urine 90 50 Other: Voiding Method Indwelling Catheter # Bowel Movements 1 Weight 63.503 kg 01/04/19 02:46 01/04/19 02:46 <Alexei Liu - Last Filed: 01/04/19 20:51> History of Present Illness History of present illness: Patient interviewed and examined along with Sofie Esteves PA-C Patient admitted with a fall She is lying on the floor for 8 hours extending her family members but did not mention that she had fallen and needed help Completely asymptomatic from a cardiac standpoint no syncope Peripheral ECG showed T-wave inversions in the lateral precordial leads and high lateral leads Significantly abnormal CPK levels of 69,000, 63,000 And 46,000, Out of proportion to the elevation in troponin levels Elevated troponins with a rising trend of 12, 17 and 17 The ratio of CPK and troponins is unusual 2-D echo and Doppler study revealed severe LV dysfunction with a large anteroapical area of akinesis/severe hypokinesis Is quite likely that this represents both skeletal muscle injury and myocardial injury independently The CPK levels are too high relative to the troponins but given the ECG abnormality in the 2-D echo abnormality is likely that both muscle groups an injured Patient is remarkably asymptomatic. Blood pressure is low and I will switch from atenolol low-dose metoprolol tartrate (5 mg twice daily and gradually ma ximize At this time she has renal failure and IV hydration cautiously would be appropriate. She is in no respiratory distress at all Physical Exam Vitals: Vital Signs Temp Pulse Pulse Resp BP BP Pulse Ox 01/04/19 19:00 53 L 24 91/67 92 L 01/04/19 18:30 53 L 25 H 100/71 94 L 01/04/19 18:00 58 L 24 109/83 94 L 01/04/19 17:30 64 23 94/69 94 L 01/04/19 17:00 52 L 22 95/70 95 01/04/19 16:30 55 L 22 101/70 92 L 01/04/19 16:00 97.8 F 60 16 98/72 94 L 01/04/19 15:30 56 L 16 98/71 92 L 01/04/19 15:00 56 L 22 93/69 92 L 01/04/19 14:30 56 L 22 98/71 92 L 01/04/19 14:00 54 L 23 105/68 93 L 01/04/19 13:30 60 24 99/78 94 L 01/04/19 13:00 65 21 94/62 95 01/04/19 12:30 57 L 21 86/67 93 L 01/04/19 12:00 98 F 57 L 23 97/72 92 L 01/04/19 11:30 60 22 99/69 94 L 01/04/19 11:00 58 L 25 H 90/66 91 L 01/04/19 10:30 55 L 24 99/66 01/04/19 10:00 57 L 27 H 100/66 01/04/19 09:30 66 18 107/74 95 01/04/19 09:00 61 23 91/68 94 L 01/04/19 08:30 56 L 22 94/63 93 L 01/04/19 08:00 98.3 F 57 L 23 91/67 94 L 01/04/19 07:30 54 L 23 85/64 93 L 01/04/19 07:00 56 L 22 88/69 94 L 01/04/19 06:30 54 L 21 94/63 95 01/04/19 06:00 58 L 22 91/62 95 01/04/19 05:30 59 L 22 91/63 95 01/04/19 05:00 61 21 98/65 95 01/04/19 04:30 59 L 18 101/68 95 01/04/19 04:00 98.1 F 63 23 91/63 95 01/04/19 03:30 58 L 21 85/62 96 01/04/19 03:00 60 21 99/65 96 01/04/19 02:30 64 16 96/64 94 L 01/04/19 02:00 98.4 F 64 24 98/72 95 01/04/19 01:49 22 01/04/19 01:37 98.9 F 59 L 17 99/71 99 01/04/19 01:17 98.4 F 65 18 96/64 96 01/03/19 23:00 77 18 105/78 96 01/03/19 21:15 79 18 97/70 96 Intake and Output 01/04/19 01/04/19 01/04/19 06:59 14:59 22:59 Intake Total 2000 1600 1300 Output Total 90 100 90 Balance 1910 1500 1210 Intake: IV 1800 1600 1000 Sodium Chloride 0.9% 1, 1400 1000 000 ml @ 200 mls/hr IV . Q5H [facility] Rx#:[id number] Sodium Chloride 0.9% 1, 1800 200 000 ml @ 999 mls/hr IV . Q1H1M [facility] Rx#:[id number] Oral 200 300 Output: Urine 90 100 90 Other: Voiding Method Indwelling Catheter Indwelling Catheter Indwelling Catheter # Bowel Movements 1 Weight 63.503 kg Results 01/04/19 02:46 01/04/19 02:46 Cardiac Enzymes 01/03/19 01/03/19 01/04/19 Range/Units 21:03 21:03 02:46 AST 1363 H (14-36) U/L Troponin I 12.500 H* 17.700 H* (0.000-0.034) ng/mL 01/04/19 Range/Units 06:46 AST (14-36) U/L Troponin I 17.400 H* (0.000-0.034) ng/mL Coagulation 01/03/19 01/04/19 01/04/19 Range/Units 21:03 06:46 13:04 PT 10.4 10.5 (9.0-12.0) sec APTT 23.2 73.5 H (22.0-30.0) sec CBC 01/03/19 01/04/19 Range/Units 21:03 02:46 WBC 19.4 H 19.0 H (3.8-10.6) k/uL RBC 4.25 3.84 (3.80-5.40) m/uL Hgb 13.5 12.2 (11.4-16.0) gm/dL Hct 39.1 35.7 (34.0-46.0) % Plt Count 299 255 (150-450) k/uL Comprehensive Metabolic Panel 01/03/19 01/04/19 Range/Units 21:03 02:46 Sodium 140 140 (137-145) mmol/L Potassium 4.9 5.0 (3.5-5.1) mmol/L Chloride 103 107 (98-107) mmol/L Carbon Dioxide 19 L 18 L (22-30) mmol/L BUN 59 H 61 H (7-17) mg/dL Creatinine 4.03 H 4.04 H (0.52-1.04) mg/dL Glucose 143 H 100 H (74-99) mg/dL Calcium 9.3 8.1 L (8.4-10.2) mg/dL AST 1363 H (14-36) U/L ALT 43 (9-52) U/L Alkaline Phosphatase 42 (38-126) U/L Total Protein 6.5 (6.3-8.2) g/dL Albumin 4.5 (3.5-5.0) g/dL Current Medications Generic Name Dose Route Start Last Admin Trade Name Freq PRN Reason Stop Dose Admin Carbidopa/Levodopa 0.5 each 01/04/19 13:00 01/04/19 12:53 Sinemet 25-100 PO 01/05/19 23:00 0.5 each BID [facility] Administration Carbidopa/Levodopa 0.5 each 01/06/19 16:00 Sinemet 25-100 PO 01/12/19 23:00 1600,2200 [facility] Carbidopa/Levodopa 1 each 01/06/19 09:00 Sinemet 25-100 PO QAM [facility] Carbidopa/Levodopa 1 each 01/13/19 16:00 Sinemet 25-100 PO 1600 [facility] Carbidopa/Levodopa 0.5 each 01/13/19 21:00 Sinemet 25-100 PO HS [facility] Escitalopram Oxalate 20 mg 01/04/19 09:00 01/04/19 08:05 Lexapro PO 20 mg DAILY [facility] Administration Heparin Sodium (Porcine) 0 unit 01/04/19 06:21 Heparin IV PER PROTOCOL PRN Low PTT Protocol Heparin Sodium/Sodium Chloride 250 mls @ 7.62 mls/hr 01/04/19 06:30 01/04/19 07:15 25,000 unit/ Sodium Chloride IV 12 units/kg/hr .Q24H [facility] 7.62 mls/hr Administration Protocol 12 UNITS/KG/HR Sodium Chloride 1,000 mls @ 75 mls/hr 01/04/19 16:00 01/04/19 16:15 Saline 0.9% IV 75 mls/hr .[id number] [facility] Administration Insulin Aspart 0 unit 01/04/19 07:30 01/04/19 17:01 Novolog SQ Not Given ACHS [facility] Protocol Lorazepam 1 mg 01/04/19 09:00 01/04/19 15:59 Ativan PO 1 mg TID [facility] Administration Metoprolol Tartrate 12.5 mg 01/04/19 21:00 Lopressor PO BID [facility] Naloxone HCl 0.2 mg 01/04/19 00:40 Narcan IV Q2M PRN Opioid Reversal Pantoprazole Sodium 40 mg 01/04/19 09:00 01/04/19 08:05 Protonix PO 40 mg DAILY [facility] Administration Sodium Bicarbonate 650 mg 01/04/19 18:00 01/04/19 17:04 Sodium Bicarbonate Tab PO 650 mg QID [facility] Administration Intake and Output 01/04/19 01/04/19 01/04/19 06:59 14:59 22:59 Intake Total 2000 1600 1300 Output Total 90 100 90 Balance 1910 1500 1210 Intake: IV 1800 1600 1000 Sodium Chloride 0.9% 1, 1400 1000 000 ml @ 200 mls/hr IV . Q5H [facility] Rx#:[id number] Sodium Chloride 0.9% 1, 1800 200 000 ml @ 999 mls/hr IV . Q1H1M [facility] Rx#:[id number] Oral 200 300 Output: Urine 90 100 90 Other: Voiding Method Indwelling Catheter Indwelling Catheter Indwelling Catheter # Bowel Movements 1 Weight 63.503 kg Patient Weight 01/05/19 06:59 Weight 63.503 kg 01/04/19 02:46 01/04/19 02:46
--- NOTE | 2019-01-04 15:49 | P.NPCON ---
History of Present Illness - Reason for Consult Consult date: 01/04/19 acute renal failure - Chief Complaint Rhabdomyolysis and acute kidney injury - History of Present Illness This is a 68-year-old female seen in consultation because of active acute kidney injury secondary to rhabdomyolysis. She is known with parkinsonism diagnosed earlier this year in June 2018, diabetes for the last approximately 10 years. She is unclear as to whether she has any kidney disease should never seen a sanitation lead. She moved to this area about a few months ago therefore her previous records are at [facility]. She has had recent falls and she fell and was unable to move and was immobilized for about 8 hours. She came in with CKs off 60 3641. Troponin was 17. She denies any chest pain, cough fever chills nausea vomiting shortness of breath She has been dieting for the last few months and has last was 40 pounds over the last 6 months. Blood pressure was low because of this and and she continued to take her blood pressure medications. She was also on meloxicam for joint disease and arthritis. No history of seizures she didn't pass out. She could not move because she was weak and tired. Past Medical History Past Medical History: Diabetes Mellitus, GERD/Reflux, Hypertension Additional Past Medical History / Comment(s): Parkinson's disease History of Any Multi-Drug Resistant Organisms: None Reported Past Surgical History: Section Additional Past Anesthesia/Blood Transfusion Reaction / Comment(s): Mild Sleep Apnea per patient Past Psychological History: Depression Smoking Status: Former smoker Past Alcohol Use History: Occasional Additional Past Alcohol Use History / Comment(s): Pt states less then 4 drinks a week Past Drug Use History: None Reported Medications and Allergies Home Medications Medication Instructions Recorded Confirmed Type Aspirin EC [Ecotrin Low Dose] 81 mg PO DAILY 01/03/19 01/03/19 History Atenolol [Tenormin] 25 mg PO DAILY 01/03/19 01/03/19 History Carbidopa-Levodopa 25-100 mg 1 dose PO DIRECTED 01/03/19 01/03/19 History [Sinemet 25-100] Escitalopram [Lexapro] 20 mg PO DAILY 01/03/19 01/03/19 History LORazepam [Ativan] 1 mg PO TID 01/03/19 01/03/19 History Meloxicam [Mobic] 15 mg PO DAILY 01/03/19 01/03/19 History Olmesartan/Hydrochlorothiazide 1 tab PO DAILY 01/03/19 01/03/19 History [Benicar Hct 40-25 mg Tablet] Pantoprazole Sodium [Protonix] 40 mg PO DAILY 01/03/19 01/03/19 History Rosuvastatin Calcium [Crestor] 10 mg PO DAILY 01/03/19 01/03/19 History Valbenazine Tosylate [Ingrezza] 80 mg PO DAILY 01/03/19 01/03/19 History Zolpidem [Ambien] 10 mg PO HS 01/03/19 01/03/19 History metFORMIN HCL [Glucophage] 500 mg PO BID 01/03/19 01/03/19 History Allergies Allergy/AdvReac Type Severity Reaction Status Date / Time codeine Allergy Nausea & Verified 01/03/19 20:45 Vomiting Penicillins Allergy Rash/Hives Verified 01/03/19 20:45 Physical Exam Vitals: Vital Signs Temp Pulse Pulse Resp BP BP Pulse Ox 01/04/19 15:00 56 L 22 93/69 92 L 01/04/19 14:30 56 L 22 98/71 92 L 01/04/19 14:00 54 L 23 105/68 93 L 01/04/19 13:30 60 24 99/78 94 L 01/04/19 13:00 65 21 94/62 95 01/04/19 12:30 57 L 21 86/67 93 L 01/04/19 12:00 98 F 57 L 23 97/72 92 L 01/04/19 11:30 60 22 99/69 94 L 01/04/19 11:00 58 L 25 H 90/66 91 L 01/04/19 10:30 55 L 24 99/66 01/04/19 10:00 57 L 27 H 100/66 01/04/19 09:30 66 18 107/74 95 01/04/19 09:00 61 23 91/68 94 L 01/04/19 08:30 56 L 22 94/63 93 L 01/04/19 08:00 98.3 F 57 L 23 91/67 94 L 01/04/19 07:30 54 L 23 85/64 93 L 01/04/19 07:00 56 L 22 88/69 94 L 01/04/19 06:30 54 L 21 94/63 95 01/04/19 06:00 58 L 22 91/62 95 01/04/19 05:30 59 L 22 91/63 95 01/04/19 05:00 61 21 98/65 95 01/04/19 04:30 59 L 18 101/68 95 01/04/19 04:00 98.1 F 63 23 91/63 95 01/04/19 03:30 58 L 21 85/62 96 01/04/19 03:00 60 21 99/65 96 01/04/19 02:30 64 16 96/64 94 L 01/04/19 02:00 98.4 F 64 24 98/72 95 01/04/19 01:49 22 01/04/19 01:37 98.9 F 59 L 17 99/71 99 01/04/19 01:17 98.4 F 65 18 96/64 96 01/03/19 23:00 77 18 105/78 96 01/03/19 21:15 79 18 97/70 96 01/03/19 20:30 97.3 F L 71 16 88/63 97 Intake and Output 01/04/19 01/04/19 01/04/19 06:59 14:59 22:59 Intake Total 2000 1600 200 Output Total 90 100 20 Balance 1910 1500 180 Intake: IV 1800 1600 200 Sodium Chloride 0.9% 1, 1400 200 000 ml @ 200 mls/hr IV . Q5H [facility] Rx#:[id number] Sodium Chloride 0.9% 1, 1800 200 000 ml @ 999 mls/hr IV . Q1H1M [facility] Rx#:[id number] Oral 200 Output: Urine 90 100 20 Other: Voiding Method Indwelling Catheter Indwelling Catheter Indwelling Catheter # Bowel Movements 1 Weight 63.503 kg On examination she is awake alert oriented. HEENT exam no JVP neck is supple no facial asymmetry Lungs are clear to auscultation with air entry bilaterally Heart sounds are unremarkable for any murmur rub gallop Abdomen is soft nontender no masses felt no organomegaly ascites Extremity exam was no edema There is some bruising on the left guerrero area. Neurologically awake alert oriented no asterixis. She is able to move all her extremities but has profound generalized weakness. No obvious tremors noted at this time. She does have a flat affect the Results - Lab Results Most recent lab results Calcium 8.1 mg/dL (8.4-10.2) L 01/04/19 02:46 Magnesium 2.6 mg/dL (1.6-2.3) H 01/03/19 21:03 01/04/19 02:46 01/04/19 02:46 Assessment and Plan Assessment: Impression 1. Rhabdomyolysis secondary to [place] [address] and acute kidney injury creatinine is 4.04. No previous creatinines available. Additional element of meloxicam as well as low blood pressure contributing to the acute kidney injury. No urine output and therefore IV fluids have been discontinued 2. Mild degree of gap and non-gap acidosis. Etiology is acute kidney injury. Gap is 15 and bicarb is 18. 3. High troponin, 17 4. History of Parkinson's since June 2018 5. History of diabetes for 10 years. 6. History of weight loss of 40 pounds over 6 months with dieting. 7. Hypotension secondary to weight loss and continuation of blood pressure medications. Recommendation 1. Will maintain IV fluid normal saline at 60 an hour. 2. Monitor CK. 3. Monitor calcium and phosphorus. 4. Discussed with patient possible need for dialysis but expect renal function didn't improve in a few days. 5. Start sodium bicarb 650 4 times a day Thank you for this consultation, will continue to follow
[2019-01-04 16:23] LABS: Phosphorus 6.7 mg/dL (2.5-4.5)
--- NOTE | 2019-01-04 16:27 | ECHOF ---
Referral Reason:Low Bp, Rhabdo MEASUREMENTS -------- HEIGHT: 165.1 cm WEIGHT: 63.5 kg BP: 85/64 IVSd: 1.1 cm (0.6 - 1.1) LVIDd: 5.2 cm (3.9 - 5.3) LVPWd: 1.3 cm (0.6 - 1.1) IVSs: 1.3 cm LVIDs: 4.0 cm LVPWs: 1.7 cm RVIDd: 3.3 cm (< 3.3) LAESV Index (A-L): 22.90 ml/m Ao Diam: 3.3 cm (2.0 - 3.7) LA Diam: 3.9 cm (2.7 - 3.8) AV Cusp: 1.7 cm (1.5 - 2.6) EPSS: 1.3 cm MV E Austin: 0.62 m/s MV DecT: 207 ms MV A Austin: 0.94 m/s MV E/A Ratio: 0.66 RAP: 20.00 mmHg RVSP: 35.86 mmHg MV EF SLOPE: 98.74 mm/s (70 - 150) MV EXCURSION: 17.35 mm (> 18.000) FINDINGS -------- Sinus rhythm. This was a technically adequate study. The left ventricular size is normal. There is mild concentric left ventricular hypertrophy. There is moderate global hypokinesis of LV . Overall left ventricular systolic function is moderately im paired with, an EF between 35 - 40 %. Mitral Doppler inflow pattern suggests diastolic filling abno rmality 18.98. The right ventricle is mildly enlarged. Normal LA size by volume 22+/-6 ml/m2. The right atrial size is normal. Interatrial and interventricular septum intact. The aortic valve is trileaflet and appears structurally normal. There is no evidence of aortic regu rgitation. There is no evidence of aortic stenosis. Mild mitral annular calcification present. Mild mitral regurgitation is present. Mild tricuspid regurgitation present. There is mild pulmonary hypertension. The right ventricular systolic pressure, as measured by Doppler, is 35.86mmHg. The pulmonic valve is normal. The aortic root size is normal. The inferior vena cava is dilated with no significant inspiratory collapse which is consistent estima kayce right atrial pressure of >20 mmHg. There is no pericardial effusion. CONCLUSIONS -------- 1. Sinus rhythm. 2. This was a technically adequate study. 3. The left ventricular size is normal. 4. There is mild concentric left ventricular hypertrophy. 5. There is moderate global hypokinesis of LV . 6. Overall left ventricular systolic function is moderately impaired with, an EF between 35 - 40 %. 7. Mitral Doppler inflow pattern suggest diastolic filling abnormality 18.98. 8. The right ventricle is mildly enlarged. 9. Normal LA size by volume 22+/-6 ml/m2. 10. The right atrial size is normal. 11. Interatrial and interventricular septum intact. 12. The aortic valve is trileaflet and appears structurally normal. 13. There is no evidence of aortic regurgitation. 14. There is no evidence of aortic stenosis. 15. Mild mitral annular calcification present. 16. Mild mitral regurgitation is present. 17. Mild tricuspid regurgitation present. 18. There is mild pulmonary hypertension. 19. The right ventricular systolic pressure, as measured by Doppler, is 35.86mmHg. 20. The pulmonic valve is normal. 21. The aortic root size is normal. 22. The inferior vena cava is dilated with no significant inspiratory collapse which is consistent es timated right atrial pressure of >20 mmHg. 23. There is no pericardial effusion. COIL CUTTER: Jossy Ozuna RDCS
[2019-01-04 16:41] LABS: Uric Acid 17.7 mg/dL (3.7-7.4)
[2019-01-04] MEDS: SODIUM BICARBONATE TAB 650 MG TAB PO SCH ×2 (17:04→21:15)
[2019-01-04 17:20] LABS: Glucose,Whole Blood 99 mg/dL (75-99)
[2019-01-04] MEDS ORDERED: RASBURICASE 6 MG in SODIUM CHLORIDE 0.9% 46 ML IV ONE (17:30)
[2019-01-04 20:43] LABS: Glucose,Whole Blood 115 mg/dL (75-99)
[2019-01-04] MEDS: METOPROLOL TARTRATE 12.5 MG TAB PO SCH (21:15)
[2019-01-05 05:59] LABS: Basophils % (A) 0 %; Eosinophils # (A) 0.1 k/uL (0-0.7); Eosinophils % (A) 1 %; HCT 34.1 % (34.0-46.0); HGB 11.2 gm/dL (11.4-16.0); Lymphocytes # (A) 1.3 k/uL (1.0-4.8); Lymphocytes % (A) 8 %; MCH 31.8 pg (25.0-35.0); MCHC 32.8 g/dL (31.0-37.0); MCV 96.8 fL (80.0-100.0); Mean Platelet Volume 9.5; Monocytes # (A) 0.8 k/uL (0-1.0); Monocytes % (A) 5 %; Neutrophils # (A) 13.2 k/uL (1.3-7.7); Neutrophils % (A) 85 %; Platelet Count 201 k/uL (150-450); RBC 3.52 m/uL (3.80-5.40); RDW 13.4 % (11.5-15.5); WBC 15.5 k/uL (3.8-10.6)
[2019-01-05 06:02] LABS: Albumin 2.8 g/dL (3.5-5.0); Calcium 7.7 mg/dL (8.4-10.2); Magnesium 2.3 mg/dL (1.6-2.3); Phosphorus 6.8 mg/dL (2.5-4.5); Potassium 4.6 mmol/L (3.5-5.1); Total Bilirubin 0.3 mg/dL (0.2-1.3); Total Protein 4.7 g/dL (6.3-8.2)
[2019-01-05] MEDS: HEPARIN SOD,PORK IN 0.45% NACL 25,000 UNIT in 0.45% NACL 1 250ML.BAG IV SCH (06:42)
[2019-01-05] MEDS: SODIUM CHLORIDE 0.9% 1,000 ML IV SCH ×2 (06:44→20:59)
[2019-01-05] MEDS: INSULIN ASPART (NovoLOG) 100 UNIT/ML VIAL SQ SCH ×3 (07:12→21:01)
[2019-01-05 07:18] LABS: Glucose,Whole Blood 96 mg/dL (75-99)
[2019-01-05] MEDS: ESCITALOPRAM 20 MG TAB PO SCH (08:03)
[2019-01-05] MEDS: CARBIDOPA-LEVODOPA 25-100 MG 1 EACH TAB PO SCH ×2 (08:04→20:58)
[2019-01-05] MEDS: PANTOPRAZOLE 40 MG TABLET PO SCH (08:04)
[2019-01-05] MEDS: SODIUM BICARBONATE TAB 650 MG TAB PO SCH ×4 (08:04→21:02)
[2019-01-05] MEDS: LORazepam 1 MG TAB PO SCH ×3 (08:04→21:02)
[2019-01-05] MEDS: METOPROLOL TARTRATE 12.5 MG TAB PO SCH ×2 (08:05→21:02)
--- NOTE | 2019-01-05 08:56 | P.PN ---
Subjective Progress Note Date: 01/05/19 Principal diagnosis: This is a 68-year-old female seen in consultation because of acute kidney injury secondary to rhabdomyolysis, meloxicam as well as hypotension from blood pressure medication and recent weight loss from diabetic. She fell and was immobilized for about 8 hours. She came in with CKs off 60 3641. Troponin was 17. She is known with parkinsonism diagnosed earlier this year in June 2018, diabetes for the last approximately 10 years. She is unclear as to whether she has any kidney disease should never seen a validation software facilitator. She moved to this area about a few months ago therefore her previous records are at [facility]. She has had recent falls and she fell and was unable to move and was immobilized for about 8 hours. She is doing better today. No aches and pains. No shortness of breath chest pain nausea vomiting appetite is fair no diarrhea abdominal pain Urine output is picking up last 24 hour urine output is 517 mL although creat inine continues to go up, creatinine went up to 5.1 from 4. Objective - Vital Signs Vital signs: Vital Signs Temp 97 F L 01/05/19 04:00 Pulse 50 L 01/05/19 06:00 Resp 15 01/05/19 06:00 BP 101/72 01/05/19 06:00 Pulse Ox 94 L 01/05/19 06:00 Intake & Output 01/04/19 01/05/19 01/05/19 18:59 06:59 18:59 Intake Total 2700 1278.689 Output Total 165 352 Balance 2535 926.689 Weight 63.503 kg 73.2 kg Intake: IV 2400 1100 Sodium Chloride 0.9% 1, 2200 200 000 ml @ 200 mls/hr IV . Q5H RONAL Rx#:[id number] Sodium Chloride 0.9% 1, 900 000 ml @ 75 mls/hr IV . [id number] RONAL Rx#:[id number] Sodium Chloride 0.9% 1, 200 000 ml @ 999 mls/hr IV . Q1H1M STA Rx#:[id number] Intake, IV Titration 178.689 Amount Heparin Sod,Pork in 0.45% 178.689 NaCl 25,000 unit In 0.45 % NaCl 1 250ml.bag @ 12 UNITS/KG/HR 7.62 mls/hr IV .Q24H RONAL Rx#: [id number] Oral 300 Output: Urine 165 352 Other: Voiding Method Indwelling Catheter Indwelling Catheter Indwelling Catheter # Bowel Movements 1 On examination she is awake alert oriented comfortable HEENT exam no JVP neck is supple no facial asymmetry Lungs are clear to auscultation good air entry bilaterally Heart sounds are unremarkable no murmur rub gallop Abdomen soft nontender Extremity exam reveals trace edema No aches and pains or muscle tenderness Neurologically awake alert oriented no asterixis moves all her extremities but has generalized weakness. No tremors noted - Labs CBC & Chem 7: 01/05/19 05:14 01/05/19 05:14 Labs: Abnormal Lab Results - Last 24 Hours (Table) 01/04/19 01/04/19 01/04/19 Range/Units 06:46 11:40 13:04 WBC (3.8-10.6) k/uL RBC (3.80-5.40) m/uL Hgb (11.4-16.0) gm/dL Neutrophils # (1.3-7.7) k/uL APTT 73.5 H (22.0-30.0) sec Chloride (98-107) mmol/L Carbon Dioxide (22-30) mmol/L BUN (7-17) mg/dL Creatinine (0.52-1.04) mg/dL POC Glucose (mg/dL) 116 H (75-99) mg/dL Uric Acid 17.7 H* (3.7-7.4) mg/dL Calcium (8.4-10.2) mg/dL Phosphorus 6.7 H (2.5-4.5) mg/dL AST (14-36) U/L Total Protein (6.3-8.2) g/dL Albumin (3.5-5.0) g/dL 01/04/19 01/05/19 01/05/19 Range/Units 20:32 05:14 05:14 WBC 15.5 H (3.8-10.6) k/uL RBC 3.52 L (3.80-5.40) m/uL Hgb 11.2 L (11.4-16.0) gm/dL Neutrophils # 13.2 H (1.3-7.7) k/uL APTT (22.0-30.0) sec Chloride 111 H (98-107) mmol/L Carbon Dioxide 17 L (22-30) mmol/L BUN 72 H (7-17) mg/dL Creatinine 5.11 H (0.52-1.04) mg/dL POC Glucose (mg/dL) 115 H (75-99) mg/dL Uric Acid (3.7-7.4) mg/dL Calcium 7.7 L (8.4-10.2) mg/dL Phosphorus 6.8 H (2.5-4.5) mg/dL AST 510 H (14-36) U/L Total Protein 4.7 L (6.3-8.2) g/dL Albumin 2.8 L (3.5-5.0) g/dL 01/05/19 Range/Units 05:14 WBC (3.8-10.6) k/uL RBC (3.80-5.40) m/uL Hgb (11.4-16.0) gm/dL Neutrophils # (1.3-7.7) k/uL APTT 37.8 H (22.0-30.0) sec Chloride (98-107) mmol/L Carbon Dioxide (22-30) mmol/L BUN (7-17) mg/dL Creatinine (0.52-1.04) mg/dL POC Glucose (mg/dL) (75-99) mg/dL Uric Acid (3.7-7.4) mg/dL Calcium (8.4-10.2) mg/dL Phosphorus (2.5-4.5) mg/dL AST (14-36) U/L Total Protein (6.3-8.2) g/dL Albumin (3.5-5.0) g/dL Microbiology - Last 24 Hours (Table) 01/04/19 00:05 Urine Culture - Preliminary Urine,Voided Assessment and Plan Assessment: Impression 1. Acute kidney injury secondary to combination off Rhabdomyolysis secondary [place] [address], additionally from low blood pressure from recent dieting and weight loss of 40 pounds as well as blood pressure medication, and lastly she was taking meloxicam. creatinine was 4.04. No previous creatinines available. . Creatinine went up to 5.1. Urine output is picking up expect renal recovery hopefully in the next few days. 2. Mild degree of gap and non-gap acidosis. Etiology is acute kidney injury. Gap is 15 and bicarb is 18. 3. Acidosis, mostly primary metabolic with bicarb of 17 and 10 secondary to acute kidney injury. 3. High troponin, 17 4. History of Parkinson's since June 2018 5. History of diabetes for 10 years. 6. History of weight loss of 40 pounds over 6 months with dieting. 7. Hypotension secondary to weight loss and continuation of blood pressure medications. Recommendation 1. Will maintain IV fluid normal saline at 75 an hour. 2. Monitor CK. monitor troponin 3. Monitor calcium and phosphorus. currently it is calcium 7.7 and a phosphorus 6.8. Calcium may start going up and phosphorus is down with recovery 4. Discussed with patient possible need for dialysis but expect renal function didn't improve in a few days. 5. Continue sodium bicarb 650 4 times a day
--- NOTE | 2019-01-05 10:52 | P.PN ---
Subjective Progress Note Date: 01/05/19 Principal diagnosis: Rhabdomyolysis Patient continued to be hemodynamically stable no major events reported by nursing staff patient is sitting up in chair tolerating diet with Mena catheter in place and dark urine noted in the bag. Patient is denying chest pain, shortness breath, nausea, vomiting, dumping, dizziness or lightheadedness and asking if she can go home Objective - Vital Signs Vital signs: Vital Signs Temp 98 F 01/05/19 08:00 Pulse 58 L 01/05/19 08:00 Resp 18 01/05/19 08:00 BP 106/81 01/05/19 08:00 Pulse Ox 94 L 01/05/19 08:00 Intake & Output 01/04/19 01/05/19 01/05/19 18:59 06:59 18:59 Intake Total 2700 1278.689 150 Output Total 165 352 50 Balance 2535 926.689 100 Weight 63.503 kg 73.2 kg Intake: IV 2400 1100 150 Sodium Chloride 0.9% 1, 2200 200 000 ml @ 200 mls/hr IV . Q5H RONAL Rx#:[id number] Sodium Chloride 0.9% 1, 900 150 000 ml @ 75 mls/hr IV . [id number] RONAL Rx#:[id number] Sodium Chloride 0.9% 1, 200 000 ml @ 999 mls/hr IV . Q1H1M STA Rx#:[id number] Intake, IV Titration 178.689 Amount Heparin Sod,Pork in 0.45% 178.689 NaCl 25,000 unit In 0.45 % NaCl 1 250ml.bag @ 12 UNITS/KG/HR 7.62 mls/hr IV .Q24H RONAL Rx#: [id number] Oral 300 Output: Urine 165 352 50 Other: Voiding Method Indwelling Catheter Indwelling Catheter Indwelling Catheter # Bowel Movements 1 - Exam Gen.: in stated age, no acute distress Heart: Normal S1-S2 Lungs: Clear to auscultation bilaterally Abdomen: Soft, no tenderness, positive bowel sounds in all 4 quadrant no guarding or rebound Skin: No new rash Psych: Alert and oriented 3 Neuro: No focal deficit Left knee bruising seems to be stable from prior examination - Labs CBC & Chem 7: 01/05/19 05:14 01/05/19 05:14 Labs: Abnormal Lab Results - Last 24 Hours (Table) 01/04/19 01/04/19 01/04/19 Range/Units 06:46 11:40 13:04 WBC (3.8-10.6) k/uL RBC (3.80-5.40) m/uL Hgb (11.4-16.0) gm/dL Neutrophils # (1.3-7.7) k/uL APTT 73.5 H (22.0-30.0) sec Chloride (98-107) mmol/L Carbon Dioxide (22-30) mmol/L BUN (7-17) mg/dL Creatinine (0.52-1.04) mg/dL POC Glucose (mg/dL) 116 H (75-99) mg/dL Uric Acid 17.7 H* (3.7-7.4) mg/dL Calcium (8.4-10.2) mg/dL Phosphorus 6.7 H (2.5-4.5) mg/dL AST (14-36) U/L Creatine Kinase (30-135) U/L Troponin I (0.000-0.034) ng/mL Total Protein (6.3-8.2) g/dL Albumin (3.5-5.0) g/dL 01/04/19 01/05/19 01/05/19 Range/Units 20:32 05:14 05:14 WBC 15.5 H (3.8-10.6) k/uL RBC 3.52 L (3.80-5.40) m/uL Hgb 11.2 L (11.4-16.0) gm/dL Neutrophils # 13.2 H (1.3-7.7) k/uL APTT (22.0-30.0) sec Chloride 111 H (98-107) mmol/L Carbon Dioxide 17 L (22-30) mmol/L BUN 72 H (7-17) mg/dL Creatinine 5.11 H (0.52-1.04) mg/dL POC Glucose (mg/dL) 115 H (75-99) mg/dL Uric Acid (3.7-7.4) mg/dL Calcium 7.7 L (8.4-10.2) mg/dL Phosphorus 6.8 H (2.5-4.5) mg/dL AST 510 H (14-36) U/L Creatine Kinase (30-135) U/L Troponin I (0.000-0.034) ng/mL Total Protein 4.7 L (6.3-8.2) g/dL Albumin 2.8 L (3.5-5.0) g/dL 01/05/19 01/05/19 01/05/19 Range/Units 05:14 05:14 05:14 WBC (3.8-10.6) k/uL RBC (3.80-5.40) m/uL Hgb (11.4-16.0) gm/dL Neutrophils # (1.3-7.7) k/uL APTT 37.8 H (22.0-30.0) sec Chloride (98-107) mmol/L Carbon Dioxide (22-30) mmol/L BUN (7-17) mg/dL Creatinine (0.52-1.04) mg/dL POC Glucose (mg/dL) (75-99) mg/dL Uric Acid (3.7-7.4) mg/dL Calcium (8.4-10.2) mg/dL Phosphorus (2.5-4.5) mg/dL AST (14-36) U/L Creatine Kinase 48934 H* (30-135) U/L Troponin I 7.650 H* (0.000-0.034) ng/mL Total Protein (6.3-8.2) g/dL Albumin (3.5-5.0) g/dL Microbiology - Last 24 Hours (Table) 01/04/19 00:05 Urine Culture - Preliminary Urine,Voided Assessment and Plan Assessment: 1. Rhabdomyolysis. 2. Generalized weakness with frequent falls and multiple bruising. 3. Left knee swelling rule out effusion. 4. Acute kidney injury secondary to above. 5. Leukocytosis without left shift. 6. Parkinson disease, advanced. 7. Severe debility and deconditioning. 8. Hyperlipidemia. 9. Diabetes mellitus type 2 area 10. Hypertension. Creatinine has worsened today but patient still generating decent amount of urine we'll continue monitoring closely, continue gentle hydration was 75 mL of normal saline decided by nephrology, continue close electrolyte watching, repeat her blood work in the morning, continue insulin sliding scale, continue blood pressure medication with holding parameters and hold nephrotoxic medication. Plan discussed with organizational effectiveness consultant on the case
--- NOTE | 2019-01-05 11:13 | P.PN ---
Subjective Progress Note Date: 01/05/19 Principal diagnosis: Acute rhabdomyolysis, and acute kidney injury. This is a 68-year-old female with known history of Parkinson's disease, hypertension, depression, degenerative joint disease, type 2 diabetes, hypercholesterolemia, brought in by family members mostly because the patient was found on the floor, and could not get up on her own. Apparently the patient fell while she was walking at her own home, and she was done on the floor for about 8 hours. Patient lives by herself, and according to her she felt unsteady on her feet, and she fell down on her buttock. She had no head trauma, no loss of consciousness, she was found on the floor about 8 hours after her fall. Patient was brought in by EMS, and she was found initially hypotensive upon arrival. Although she has history of hypertension. Patient did have previous history of multiple falls in the past, but this one was the worse. Workup in the ER included chest x-ray, CT of the head and cervical spine, x-rays of the knees, pelvic x-rays, and EKG. Her chest x-ray was normal. CT of the head and cervical spine was negative. X-rays of the knees were normal. Pelvic x-ray showed no evidence of fracture or malalignment. EKG showed mostly normal sinus rhythm, T-wave inversion suspicious for anterior ischemia. Labs in the ER were quite abnormal showing evidence of leukocytosis with WBC count of 19.0. BUN was noted to be 61 creatinine 4.04. CPK 54502, troponin was significantly elevated at 17.7, bicarb was 18, anion gap of 15. Patient was given significant amount of fluids in the ER, placed on 0.9 normal saline at 200 mL/h, admitted to the intensive care unit, and this consult was initiated. During my evaluation, patient was noted to be in no form of distress, very pleasant, and was able to give me a good history as noted above. One family member is at bedside Patient was reevaluated today on 01/05/2019, remains in the ICU, patient is making a significant improvement compared to yesterday. Her urine output remains very marginal and poor, her CPK however is down to 18,266, and her troponin is drifting down significantly. Patient is feeling better clinically, asymptomatic, and her renal functioning remains poor, worse than yesterday, creatinine is 5.11. BUN is 72. Nephrology is recommending cutting down the IV fluid, presently at 75 mL/h, and potential dialysis was addressed with the patient, however that is to be decided upon in the next couple of days. It will all depend on the potential recovery of her renal status. Again clinically the patient is doing better. Objective - Vital Signs Vital signs: Vital Signs Temp 98 F 01/05/19 08:00 Pulse 58 L 01/05/19 08:00 Resp 18 01/05/19 08:00 BP 106/81 01/05/19 08:00 Pulse Ox 94 L 01/05/19 08:00 Intake & Output 01/04/19 01/05/19 01/05/19 18:59 06:59 18:59 Intake Total 2700 1278.689 150 Output Total 165 352 50 Balance 2535 926.689 100 Weight 63.503 kg 73.2 kg Intake: IV 2400 1100 150 Sodium Chloride 0.9% 1, 2200 200 000 ml @ 200 mls/hr IV . Q5H RONAL Rx#:[id number] Sodium Chloride 0.9% 1, 900 150 000 ml @ 75 mls/hr IV . [id number] RONAL Rx#:[id number] Sodium Chloride 0.9% 1, 200 000 ml @ 999 mls/hr IV . Q1H1M STA Rx#:[id number] Intake, IV Titration 178.689 Amount Heparin Sod,Pork in 0.45% 178.689 NaCl 25,000 unit In 0.45 % NaCl 1 250ml.bag @ 12 UNITS/KG/HR 7.62 mls/hr IV .Q24H RONAL Rx#: [id number] Oral 300 Output: Urine 165 352 50 Other: Voiding Method Indwelling Catheter Indwelling Catheter Indwelling Catheter # Bowel Movements 1 - Exam General exam: Revealed a 68-year-old female, very pleasant, in no form of respiratory distress. HEENT: Normocephalic atraumatic, extra-ocular movements intact, pupils equal and reactive to light bilaterally, mucous membranes moist. Cardiovascular: Normal S1 and S2, regular rate and rhythm, no S3 gallop, no murmur. Chest: Lungs: Symmetrical chest expansion, clear breath sound bilaterally no crackles or rhonchi or wheezes. Abdomen: Soft nontender no megaly no rebound no guarding positive bowel sounds. Extremities: Pulses present and equal in all extremities, no peripheral edema, all extremities ranged with no significant pain Motor: no focal deficits noted Neurological: CN II-XII grossly intact, no focal motor or sensory deficits noted, patient is alert oriented 3. Skin: Ecchymoses over the bilateral anterior knees Psych: Normal mood, affect, normal mental status examination. Lymphatics: No lymphadenopathy. - Labs CBC & Chem 7: 01/05/19 05:14 01/05/19 05:14 Labs: Abnormal Lab Results - Last 24 Hours (Table) 01/04/19 01/04/19 01/04/19 Range/Units 06:46 11:40 13:04 WBC (3.8-10.6) k/uL RBC (3.80-5.40) m/uL Hgb (11.4-16.0) gm/dL Neutrophils # (1.3-7.7) k/uL APTT 73.5 H (22.0-30.0) sec Chloride (98-107) mmol/L Carbon Dioxide (22-30) mmol/L BUN (7-17) mg/dL Creatinine (0.52-1.04) mg/dL POC Glucose (mg/dL) 116 H (75-99) mg/dL Uric Acid 17.7 H* (3.7-7.4) mg/dL Calcium (8.4-10.2) mg/dL Phosphorus 6.7 H (2.5-4.5) mg/dL AST (14-36) U/L Creatine Kinase (30-135) U/L Troponin I (0.000-0.034) ng/mL Total Protein (6.3-8.2) g/dL Albumin (3.5-5.0) g/dL 01/04/19 01/05/19 01/05/19 Range/Units 20:32 05:14 05:14 WBC 15.5 H (3.8-10.6) k/uL RBC 3.52 L (3.80-5.40) m/uL Hgb 11.2 L (11.4-16.0) gm/dL Neutrophils # 13.2 H (1.3-7.7) k/uL APTT (22.0-30.0) sec Chloride 111 H (98-107) mmol/L Carbon Dioxide 17 L (22-30) mmol/L BUN 72 H (7-17) mg/dL Creatinine 5.11 H (0.52-1.04) mg/dL POC Glucose (mg/dL) 115 H (75-99) mg/dL Uric Acid (3.7-7.4) mg/dL Calcium 7.7 L (8.4-10.2) mg/dL Phosphorus 6.8 H (2.5-4.5) mg/dL AST 510 H (14-36) U/L Creatine Kinase (30-135) U/L Troponin I (0.000-0.034) ng/mL Total Protein 4.7 L (6.3-8.2) g/dL Albumin 2.8 L (3.5-5.0) g/dL 01/05/19 01/05/19 01/05/19 Range/Units 05:14 05:14 05:14 WBC (3.8-10.6) k/uL RBC (3.80-5.40) m/uL Hgb (11.4-16.0) gm/dL Neutrophils # (1.3-7.7) k/uL APTT 37.8 H (22.0-30.0) sec Chloride (98-107) mmol/L Carbon Dioxide (22-30) mmol/L BUN (7-17) mg/dL Creatinine (0.52-1.04) mg/dL POC Glucose (mg/dL) (75-99) mg/dL Uric Acid (3.7-7.4) mg/dL Calcium (8.4-10.2) mg/dL Phosphorus (2.5-4.5) mg/dL AST (14-36) U/L Creatine Kinase 02343 H* (30-135) U/L Troponin I 7.650 H* (0.000-0.034) ng/mL Total Protein (6.3-8.2) g/dL Albumin (3.5-5.0) g/dL Microbiology - Last 24 Hours (Table) 01/04/19 00:05 Urine Culture - Preliminary Urine,Voided Assessment and Plan Assessment: Impression: 1 acute rhabdomyolysis. Secondary to fall. Secondary to underlying Parkinson's disease. 2 possible acute non-ST elevation myocardial infarction 3 acute kidney injury, secondary to acute rhabdomyolysis. 4 history of Parkinson's disease, and difficulty ambulating on her own. 5 history of hypercholesterolemia 6 history of type 2 diabetes. 7 history of benign essential hypertension 8 history of GERD Recommendation: Continue IV fluids, close monitoring of renal profile, continue her usual meds for Parkinson's disease, insulin subcu as per protocol based on Accu-Cheks. Continue heparin for elevated troponin, and this is being addressed by cardiology. Consider transferring the patient to a regular medical floor if felt appropriate by other consultants. We'll continue to follow discussed her condition with her and her family as well as with nephrology on the case. Family is wondering whether the patient will require dialysis, it is not clear at this point whether she will or not, but that is to be decided upon in the next few days. Time with Patient: Less than 30
[2019-01-05 11:54] LABS: Glucose,Whole Blood 87 mg/dL (75-99)
--- NOTE | 2019-01-05 13:45 | P.PN ---
<Sofie Esteves - Last Filed: 01/05/19 13:45> Subjective This is Sofie Esteves PA-C dictating a progress note on this patient The patient was interviewed and examined by me as well as by Dr. Liu Case discussed with Dr. Liu and he agrees with the plan of care IMPRESSION / ASSESSMENT: Rhabdomyolysis secondary to a fall, possibly secondary to hypotension, creatinine kinase improving Reduced LV systolic function and elevated troponins, likely secondary to stress cardiomyopathy versus ischemia Acute kidney injury History of hypertension, blood pressure has been borderline hypotensive since admission Diabetes PLAN: Discontinue heparin drip Start aspirin 81 mg daily Start metoprolol 12.5 mg by mouth twice a day, monitor for hypotension and bradycardia Hold off on VALERIA inhibitor due to worsening renal function Hold off on statins for now until rhabdomyolysis improves Cautious hydration Check TSH Further workup for cardiomyopathy after rhabdomyolysis and kidney function improves HPI/interval history Patient is a 68-year-old female with a past medical history of Parkinson's disease who is admitted for treatment of rhabdomyolysis after a fall. She was also found to have elevated troponins and moderate global hypokinesis with an EF between 35-40%. Patient denied any symptoms of chest pain, jaw pain, back pain, shoulder pain, shortness of breath, lightheadedness, dizziness. Denied palpitations or syncope. Patient fall was due to weakness in her legs, Denies recent viral illnesses, bronchitis, fevers, chills. Patient seen and examined resting comfortably in bed. Denies complaints of shortness of breath, chest pain, palpitations, lightheadedness, dizziness. EXAMINATION Patient is afebrile, pulse 58, respirations 18, blood pressure 106/81, oxygen saturation 94% on room air Patient seen and examined resting in bed, appears comfortable, no acute distress Lungs are clear to auscultation bilaterally, no wheezing, rhonchi, crackles Heart is regular, no murmurs appreciated No lower extremity edema No elevated JVD REVIEW OF LABS, ECG WBC 15.5, hemoglobin 11.2, potassium 4.6, BUN 71 from 61, creatinine 5.11 from 4.04 Creatinine kinase 92943 from [id number] Troponin 7.65 from 17.4 EKG showed sinus rhythm with diffuse T-wave inversions Objective - Vital Signs Vital signs: Vital Signs Temp 98 F 01/05/19 08:00 Pulse 58 L 07/14/19 08:00 Resp 18 01/05/19 08:00 BP 106/81 01/05/19 08:00 Pulse Ox 94 L 01/05/19 08:00 Intake & Output 01/04/19 01/05/19 01/05/19 18:59 06:59 18:59 Intake Total 2700 1278.689 150 Output Total 165 352 50 Balance 2535 926.689 100 Weight 63.503 kg 73.2 kg Intake: IV 2400 1100 150 Sodium Chloride 0.9% 1, 2200 200 000 ml @ 200 mls/hr IV . Q5H [facility] Rx#:[id number] Sodium Chloride 0.9% 1, 900 150 000 ml @ 75 mls/hr IV . [id number] [facility] Rx#:[id number] Sodium Chloride 0.9% 1, 200 000 ml @ 999 mls/hr IV . Q1H1M [facility] Rx#:[id number] Intake, IV Titration 178.689 Amount Heparin Sod,Pork in 0.45% 178.689 NaCl 25,000 unit In 0.45 % NaCl 1 250ml.bag @ 12 UNITS/KG/HR 7.62 mls/hr IV .Q24H [facility] Rx#: [id number] Oral 300 Output: Urine 165 352 50 Other: Voiding Method Indwelling Catheter Indwelling Catheter Indwelling Catheter # Bowel Movements 1 - Labs CBC & Chem 7: 01/05/19 05:14 01/05/19 05:14 Labs: Abnormal Lab Results - Last 24 Hours (Table) 01/04/19 01/04/19 01/05/19 Range/Units 06:46 20:32 05:14 WBC 15.5 H (3.8-10.6) k/uL RBC 3.52 L (3.80-5.40) m/uL Hgb 11.2 L (11.4-16.0) gm/dL Neutrophils # 13.2 H (1.3-7.7) k/uL APTT (22.0-30.0) sec Chloride (98-107) mmol/L Carbon Dioxide (22-30) mmol/L BUN (7-17) mg/dL Creatinine (0.52-1.04) mg/dL POC Glucose (mg/dL) 115 H (75-99) mg/dL Uric Acid 17.7 H* (3.7-7.4) mg/dL Calcium (8.4-10.2) mg/dL Phosphorus 6.7 H (2.5-4.5) mg/dL AST (14-36) U/L Creatine Kinase (30-135) U/L Troponin I (0.000-0.034) ng/mL Total Protein (6.3-8.2) g/dL Albumin (3.5-5.0) g/dL 01/05/19 01/05/19 01/05/19 Range/Units 05:14 05:14 05:14 WBC (3.8-10.6) k/uL RBC (3.80-5.40) m/uL Hgb (11.4-16.0) gm/dL Neutrophils # (1.3-7.7) k/uL APTT 37.8 H (22.0-30.0) sec Chloride 111 H (98-107) mmol/L Carbon Dioxide 17 L (22-30) mmol/L BUN 72 H (7-17) mg/dL Creatinine 5.11 H (0.52-1.04) mg/dL POC Glucose (mg/dL) (75-99) mg/dL Uric Acid (3.7-7.4) mg/dL Calcium 7.7 L (8.4-10.2) mg/dL Phosphorus 6.8 H (2.5-4.5) mg/dL AST 510 H (14-36) U/L Creatine Kinase 75574 H* (30-135) U/L Troponin I (0.000-0.034) ng/mL Total Protein 4.7 L (6.3-8.2) g/dL Albumin 2.8 L (3.5-5.0) g/dL 01/05/19 Range/Units 05:14 WBC (3.8-10.6) k/uL RBC (3.80-5.40) m/uL Hgb (11.4-16.0) gm/dL Neutrophils # (1.3-7.7) k/uL APTT (22.0-30.0) sec Chloride (98-107) mmol/L Carbon Dioxide (22-30) mmol/L BUN (7-17) mg/dL Creatinine (0.52-1.04) mg/dL POC Glucose (mg/dL) (75-99) mg/dL Uric Acid (3.7-7.4) mg/dL Calcium (8.4-10.2) mg/dL Phosphorus (2.5-4.5) mg/dL AST (14-36) U/L Creatine Kinase (30-135) U/L Troponin I 7.650 H* (0.000-0.034) ng/mL Total Protein (6.3-8.2) g/dL Albumin (3.5-5.0) g/dL Microbiology - Last 24 Hours (Table) 01/04/19 00:05 Urine Culture - Final Urine,Voided <Alexei Liu - Last Filed: 01/05/19 22:08> Subjective Patient was examined. Still remains completely symptomatic. She is diabetic. Elevated troponins, abnormal ECG with T-wave inversions Noted, 2-D echo shows severe LV dysfunction. No recent viral illness. Recent diagnosis of Kika on's Worsening renal function Rhabdomyolysis at this time Started her on low dose beta blockers Low blood pressure Once renal function improves then we will pursue coronaryAngiography to delineate the epicardial coronary anatomy Impression Skeletal muscle injury Her fall was probably secondary to weakness in the legs secondary to low blood pressure Acute myocardial injury, cause yet to be determined, Abnormal echo abnormal 12- lead ECG, asymptomatic no chest discomfort Acute renal failure Plan Aspirin and statins and low dose beta blockers as tolerated Objective - Vital Signs Vital signs: Vital Signs Temp 98 F 01/05/19 08:00 Pulse 58 L 01/05/19 08:00 Resp 18 01/05/19 08:00 BP 106/81 01/05/19 08:00 Pulse Ox 94 L 01/05/19 08:00 Intake & Output 01/05/19 01/05/19 01/06/19 06:59 18:59 06:59 Intake Total 1278.689 150 Output Total 352 50 Balance 926.689 100 Weight 73.2 kg Intake: IV 1100 150 Sodium Chloride 0.9% 1, 200 000 ml @ 200 mls/hr IV . Q5H [facility] Rx#:[id number] Sodium Chloride 0.9% 1, 900 150 000 ml @ 75 mls/hr IV . [id number] [facility] Rx#:[id number] Intake, IV Titration 178.689 Amount Heparin Sod,Pork in 0.45% 178.689 NaCl 25,000 unit In 0.45 % NaCl 1 250ml.bag @ 12 UNITS/KG/HR 7.62 mls/hr IV .Q24H [facility] Rx#: [id number] Output: Urine 352 50 Other: Voiding Method Indwelling Catheter Indwelling Catheter - Labs CBC & Chem 7: 01/05/19 05:14 01/05/19 05:14 Labs: Abnormal Lab Results - Last 24 Hours (Table) 01/04/19 01/05/19 01/05/19 Range/Units 06:21 05:14 05:14 WBC 15.5 H (3.8-10.6) k/uL RBC 3.52 L (3.80-5.40) m/uL Hgb 11.2 L (11.4-16.0) gm/dL Neutrophils # 13.2 H (1.3-7.7) k/uL APTT (22.0-30.0) sec Chloride 111 H (98-107) mmol/L Carbon Dioxide 17 L (22-30) mmol/L BUN 72 H (7-17) mg/dL Creatinine 5.11 H (0.52-1.04) mg/dL POC Glucose (mg/dL) (75-99) mg/dL Calcium 7.7 L (8.4-10.2) mg/dL Phosphorus 6.8 H (2.5-4.5) mg/dL AST 510 H (14-36) U/L Creatine Kinase (30-135) U/L Troponin I (0.000-0.034) ng/mL Total Protein 4.7 L (6.3-8.2) g/dL Albumin 2.8 L (3.5-5.0) g/dL Stool Occult Blood Positive H (Negative) 01/05/19 01/05/19 01/05/19 Range/Units 05:14 05:14 05:14 WBC (3.8-10.6) k/uL RBC (3.80-5.40) m/uL Hgb (11.4-16.0) gm/dL Neutrophils # (1.3-7.7) k/uL APTT 37.8 H (22.0-30.0) sec Chloride (98-107) mmol/L Carbon Dioxide (22-30) mmol/L BUN (7-17) mg/dL Creatinine (0.52-1.04) mg/dL POC Glucose (mg/dL) (75-99) mg/dL Calcium (8.4-10.2) mg/dL Phosphorus (2.5-4.5) mg/dL AST (14-36) U/L Creatine Kinase 41461 H* (30-135) U/L Troponin I 7.650 H* (0.000-0.034) ng/mL Total Protein (6.3-8.2) g/dL Albumin (3.5-5.0) g/dL Stool Occult Blood (Negative) 01/05/19 01/05/19 Range/Units 17:02 20:20 WBC (3.8-10.6) k/uL RBC (3.80-5.40) m/uL Hgb (11.4-16.0) gm/dL Neutrophils # (1.3-7.7) k/uL APTT (22.0-30.0) sec Chloride (98-107) mmol/L Carbon Dioxide (22-30) mmol/L BUN (7-17) mg/dL Creatinine (0.52-1.04) mg/dL POC Glucose (mg/dL) 100 H 135 H (75-99) mg/dL Calcium (8.4-10.2) mg/dL Phosphorus (2.5-4.5) mg/dL AST (14-36) U/L Creatine Kinase (30-135) U/L Troponin I (0.000-0.034) ng/mL Total Protein (6.3-8.2) g/dL Albumin (3.5-5.0) g/dL Stool Occult Blood (Negative) Microbiology - Last 24 Hours (Table) 01/04/19 00:05 Urine Culture - Final Urine,Voided
[2019-01-05 17:14] LABS: Glucose,Whole Blood 100 mg/dL (75-99)
[2019-01-05 20:31] LABS: Glucose,Whole Blood 135 mg/dL (75-99)
[2019-01-05] MEDS: ASPIRIN 81 MG PO SCH (21:00)
[2019-01-06 05:10] LABS: Basophils % (A) 0 %; Eosinophils # (A) 0.1 k/uL (0-0.7); Eosinophils % (A) 2 %; HCT 32.6 % (34.0-46.0); HGB 10.6 gm/dL (11.4-16.0); Lymphocytes # (A) 1.1 k/uL (1.0-4.8); Lymphocytes % (A) 14 %; MCH 31.7 pg (25.0-35.0); MCHC 32.5 g/dL (31.0-37.0); MCV 97.6 fL (80.0-100.0); Mean Platelet Volume 9.1; Monocytes # (A) 0.4 k/uL (0-1.0); Monocytes % (A) 5 %; Neutrophils % (A) 79 %; Platelet Count 169 k/uL (150-450); RBC 3.34 m/uL (3.80-5.40); RDW 13.5 % (11.5-15.5); WBC 7.6 k/uL (3.8-10.6)
[2019-01-06 05:36] LABS: Calcium 7.7 mg/dL (8.4-10.2); Potassium 4.3 mmol/L (3.5-5.1)
[2019-01-06] MEDS: INSULIN ASPART (NovoLOG) 100 UNIT/ML VIAL SQ SCH ×4 (07:27→22:10)
[2019-01-06 07:36] LABS: Glucose,Whole Blood 88 mg/dL (75-99)
[2019-01-06] MEDS: CARBIDOPA-LEVODOPA 25-100 MG 1 EACH TAB PO SCH ×3 (09:07→21:39)
[2019-01-06] MEDS: ASPIRIN 81 MG PO SCH (09:07)
[2019-01-06] MEDS: PANTOPRAZOLE 40 MG TABLET PO SCH (09:07)
[2019-01-06] MEDS: LORazepam 1 MG TAB PO SCH ×2 (09:07→18:00)
[2019-01-06] MEDS: SODIUM CHLORIDE 0.9% 1,000 ML IV SCH ×2 (09:07→23:04)
[2019-01-06] MEDS: SODIUM BICARBONATE TAB 650 MG TAB PO SCH ×4 (09:07→20:51)
[2019-01-06] MEDS: METOPROLOL TARTRATE 12.5 MG TAB PO SCH ×2 (09:08→20:50)
--- NOTE | 2019-01-06 09:58 | P.PN ---
Subjective This is Sofie Esteves PA-C dictating a progress note on this patient The patient was interviewed and examined by me as well as by Dr. Liu Case discussed with Dr. Liu and he agrees with the plan of care IMPRESSION / ASSESSMENT: Rhabdomyolysis secondary to fall, possibly secondary to hypotension Reduced LV systolic function and elevated troponins, likely secondary to stress cardiomyopathy versus ischemia History of hypertension, blood pressure low normal Acute kidney injury Diabetes PLAN: Continue metoprolol 12.5 mg twice a day for treatment of systolic dysfunction, monitor for hypotension and bradycardia and hold for systolic blood pressure less than 90 mmHg and pulse less than 50 bpm Will initiate medical treatment for cardiomyopathy with a ACEs and statins when rhabdomyolysis and kidney function improves Discussed the need for further workup of cardiomyopathy with cardiac cath with patient after rhabdomyolysis and kidney function improved Patient is stable for transfer to telemetry unit from a cardiac standpoint HPI/interval history Patient is a 68-year-old female who presented to the emergency department after a fall and was found to have rhabdomyolysis. She was also found to have elevated troponins as well as LV dysfunction. Patient states she is feeling better today. States she was able to sleep comfortably lying flat, denies orthopnea or PND. Denies any chest pain, lightheadedness, dizziness, palpitations. States she did feel weakness in her legs when she got up out of bed but was not dizzy or lightheaded. No syncope. EXAMINATION Patient was afebrile, pulse 51, respirations 17, blood pressure 100/63, oxygen saturation 94% on room air Patient seen and examined resting comfortably in bed, no acute distress Lungs are clear to auscultation bilaterally, no wheezes, rhonchi, or crackles appreciated Heart is regular, normal S1 normal S2, no murmurs or gallops appreciated No elevated JVD No lower extremity edema REVIEW OF LABS, ECG no ventricular arrhythmias on telemetry WBC 7.6, hemoglobin 10.6, potassium 4.3, BUN 73 from 70, creatinine 5.36 from 5.11 TSH 4.17 Objective - Vital Signs Vital signs: Vital Signs Temp 97.7 F 01/06/19 06:00 Pulse 51 L 01/06/19 06:00 Resp 17 01/06/19 06:00 BP 100/63 01/06/19 06:00 Pulse Ox 94 L 01/06/19 06:00 Intake & Output 01/05/19 01/06/19 01/06/19 18:59 06:59 18:59 Intake Total 750 900 Output Total 350 1230 Balance 400 -330 Weight 76.4 kg Intake: IV 750 900 Sodium Chloride 0.9% 1, 750 900 000 ml @ 75 mls/hr IV . [id number] [facility] Rx#:[id number] Output: Urine 350 1230 Other: Voiding Method Indwelling Catheter Indwelling Catheter - Labs CBC & Chem 7: 01/06/19 04:49 01/06/19 04:49 Labs: Abnormal Lab Results - Last 24 Hours (Table) 01/04/19 01/05/19 01/05/19 Range/Units 06:21 17:02 20:20 RBC (3.80-5.40) m/uL Hgb (11.4-16.0) gm/dL Hct (34.0-46.0) % APTT (22.0-30.0) sec Sodium (137-145) mmol/L Chloride (98-107) mmol/L Carbon Dioxide (22-30) mmol/L BUN (7-17) mg/dL Creatinine (0.52-1.04) mg/dL POC Glucose (mg/dL) 100 H 135 H (75-99) mg/dL Calcium (8.4-10.2) mg/dL Stool Occult Blood Positive H (Negative) 01/05/19 01/06/19 01/06/19 Range/Units 22:47 04:49 04:49 RBC 3.34 L (3.80-5.40) m/uL Hgb 10.6 L (11.4-16.0) gm/dL Hct 32.6 L (34.0-46.0) % APTT 46.1 H (22.0-30.0) sec Sodium 135 L (137-145) mmol/L Chloride 109 H (98-107) mmol/L Carbon Dioxide 18 L (22-30) mmol/L BUN 73 H (7-17) mg/dL Creatinine 5.36 H (0.52-1.04) mg/dL POC Glucose (mg/dL) (75-99) mg/dL Calcium 7.7 L (8.4-10.2) mg/dL Stool Occult Blood (Negative) Microbiology - Last 24 Hours (Table) 01/04/19 00:05 Urine Culture - Final Urine,Voided
[2019-01-06] MEDS: ESCITALOPRAM 20 MG TAB PO SCH (10:53)
--- NOTE | 2019-01-06 11:08 | PN ---
PROGRESS NOTE DATE OF SERVICE: January 06, 2019 This is a 68-year-old female admitted back on January 04. She had a fall secondary to her Parkinson disease and apparently developed acute rhabdomyolysis with acute kidney injury. She was also thought to possibly have an acute non ST-segment elevation myocardial infarction versus a troponin leak, not related to myocardial ischemia, hyperlipidemia, diabetes, hypertension, and GERD. Currently, the patient is doing well. She is resting comfortably. She is not receiving any supplemental oxygen. Her IV is saline at 75 mL an hour. The patient is an overflow patient who could be transferred out to general medical floor. She denies any pain or difficulty breathing. Denies any coughing or wheezing. Denies any phlegm production. No chest pain or chest discomfort. She is pretty much back to baseline. PHYSICAL EXAMINATION: VITAL SIGNS: Currently, her vital signs are reviewed. Temperature 97.7, heart rate 51, respiratory rate 17, blood pressure 100/63, mean 75 and room air saturation 95%. Appears in no acute distress. HEENT: Examination is grossly unremarkable. No supplemental oxygen noted. NECK: Supple. Full range of motion. No adenopathy or thyromegaly. Neck veins are flat. CARDIOVASCULAR: Examination reveals regular rate. Heart rate 60. S1, S2 normal. No murmur. LUNGS: Clear breath sounds equal. No wheezes, rhonchi, or crackles. ABDOMEN: Soft. Bowel sounds are heard. EXTREMITIES: Are intact. No cyanosis, clubbing, or edema. SKIN: Without rash. NEUROLOGIC: Examination is brief but nonfocal. LAB DATA: Lab data is reviewed. White count 7.6, hemoglobin 10.6, hematocrit 32.6, platelet count 169,000. Sodium 135, potassium 4.3 chloride 109, CO2 is 18. Anion gap is 8. BUN and creatinine were 73 and 5.36. Additional laboratory data includes troponins which have been coming down. Most recent troponin 7.650. CK is 18,266. Two days ago, she was 69,038. The rest of the labs look okay. No chest x-ray to speak of. MEDICATIONS: Medications are reviewed. She is currently on aspirin, Sinemet, Lexapro, NovoLog insulin, Ativan, metoprolol, Narcan, Protonix, sodium bicarbonate tablet and the saline IV at 75 mL an hour. Microbiology is all negative. ASSESSMENT: 1. Status post fall, secondary to her Parkinson disease, with development of acute rhabdomyolysis. 2. Possible acute non ST-segment elevation myocardial infarction. 3. Acute kidney injury secondary to acute rhabdomyolysis. 4. History of Parkinson disease with difficulty ambulating. 5. History of hyperlipidemia. 6. Type 2 diabetes. 7. History of benign essential hypertension. 8. History of gastroesophageal reflux disease. PLAN: The patient is doing well. She is currently an overflow patient could be transferred to the general medical floor. Her respiratory status and cardiovascular status are both stable. No additional recommendations are made. We will continue to follow if needed. MMODL / IJN: [id number] /
--- NOTE | 2019-01-06 12:02 | PN ---
PROGRESS NOTE The patient is seen for followup for acute kidney injury. Her serum creatinine has increased to 5.36, although patient has had good urine output. She has had about 80 to 100 mL of urine output per hour. Overall, she states she is feeling well. She denies any nausea, vomiting. The patient is currently maintained on saline at 75 mL an hour. PHYSICAL EXAMINATION: On examination this morning, blood pressure was 100/63, heart rate 51 per minute. Patient is afebrile. EXAMINATION OF THE HEART: S1, S2. EXAMINATION OF THE LUNGS: Bilateral breath sounds are heard. Abdomen is soft, nontender. Examination of the lower extremities shows no significant edema. RN MIDWIFE EXAM: Grossly intact. LABS: Labs show sodium 135, potassium 4.3, chloride 109, BUN 73, serum creatinine 5.36, hemoglobin 10.6 g/dL. ASSESSMENT: 1. Acute kidney injury, nonoliguric. No evidence of obstructive uropathy. UA shows blood and protein. I will send out serologies. Check ultrasound of the kidneys. I do not see that. I have discussed with the patient that if her renal function continues to deteriorate, she will need to start dialysis. Etiology of the acute kidney injury is rhabdomyolysis, hypotension as well as NSAIDs. 2. Metabolic acidosis secondary to renal failure. 3. Hypotension, currently improved. 4. History of Parkinson disease. PLAN: Continue IV fluids. Avoid nephrotoxic agents. Continue the oral sodium bicarb. Check serologies to complete workup. MMODL / IJN: [id number] /
[2019-01-06 12:13] LABS: Glucose,Whole Blood 90 mg/dL (75-99)
--- NOTE | 2019-01-06 14:16 | P.PN ---
Subjective Progress Note Date: 01/06/19 This is 68 years old female with past medical history significant for Parkinson disease presents to the emergency department after sustaining fall at home. Patient was able to make a phone call and call 911 few hours after falling on the floor and was brought into the emergency department with multiple bruises on her body worse on the left knee. Patient was alert awake and oriented at baseline mental status able to provide information and still at baseline mental status. Patient was on the floor for several hours and sure about the exact time of fall denied loss of consciousness and think that it was mechanical to start with. Patient denied head trauma. Patient had multiple falls in the past due to her Parkinson disease but nothing significant to the point where she was on the floor a few hours. Patient is denying and recent urinary tract infection recent upper respiratory symptoms including chest pain shortness breath nausea vomiting or nasal drainage. Patient denied any recent change in her medication. Patient is denying constitutional symptoms including night sweats low-grade fe renato or weight loss. Patient currently is improved and saying that she feels much improved since admission. Patient was admitted to the intensive care unit due to diagnosis of acute kidney injury with rhabdomyolysis and was started on aggressive IV hydration and electrolyte replacement protocol. Patient is denying tobacco alcohol or drug abuse 01/05: Patient continued to be hemodynamically stable no major events reported by nursing staff patient is sitting up in chair tolerating diet with Mena catheter in place and dark urine noted in the bag. Patient is denying chest pain, shortness breath, nausea, vomiting, dumping, dizziness or lightheadedness and asking if she can go home 01/06: Patient remains in the intensive care unit and is now in [address] with telemetry. We will add and consults for psychiatric evaluation of her current medications for bipolar disorder. Patient does state her tremor is better. Has been improved on hospital. Consult with Dr. Magana. Patient is to continue I&O and daily weights. She has had good urine output and 100 mL per hour. Heart rate 56, blood pressure 104/73, pulse ox 95% on 2 L nasal cannula. Repeat BUN 73, creatinine 5.36, sodium 135, potassium 4.3, chloride 109, CO2 18. Patient is followed by nephrology. Serology testing, ultrasound of the kidneys ordered. Patient is continued on IV fluids and oral sodium bicarb. Cardiology is following for stress cardiomyopathy versus ischemia. Patient to be started on Aaron and statins when rhabdomyolysis and kidney function improves. Continue Lopressor 12.5 mg twice daily. Seismic Prospecting Observer following on an as-needed basis. Echocardiogram reveals EF between 35 and 40%, moderate global hypokinesia of the LV, no aortic stenosis, mild mitral regurgitation, mild tricuspid regurgitation, mild pulmonary hypertension. Right ventricular systolic pressure 35.86. Objective - Vital Signs Vital signs: Vital Signs Temp 97.7 F 01/06/19 06:00 Pulse 56 L 01/06/19 10:00 Resp 19 01/06/19 10:00 BP 104/73 01/06/19 10:00 Pulse Ox 95 01/06/19 10:00 Intake & Output 01/05/19 01/06/19 01/06/19 18:59 06:59 18:59 Intake Total 750 900 75 Output Total 350 1230 150 Balance 400 -330 -75 Weight 76.4 kg Intake: IV 750 900 75 Sodium Chloride 0.9% 1, 750 900 75 000 ml @ 75 mls/hr IV . [id number] [facility] Rx#:[id number] Output: Urine 350 1230 150 Other: Voiding Method Indwelling Catheter Indwelling Catheter Indwelling Catheter - Exam Review Of Systems: Constitutional: No fever, no chills, no night sweats. No weight change. No weakness, fatigue or lethargy. No daytime sleepiness. EENT: No headache. No blurred vision or double vision, no loss of vision. No loss of Hearing, no ringing in the ears, no dizziness. No nasal drainage or congestion. No epistaxis. No sore throat. Lungs: No shortness of breath, cough, no sputum production. No wheezing. Cardiovascular: No chest pain, no lower extremity edema. No palpitations. No paroxysmal nocturnal dyspnea. No orthopnea. No lightheadedness or dizziness. No syncopal episodes. Abdominal: No abdominal pain. No nausea, vomiting. No diarrhea. No constipati on. No bloody or tarry stools.. No loss of appetite. Genitourinary: No dysuria, increased frequency, urgency. No urinary retention. Musculoskeletal: No myalgias. No muscle weakness, no gait dysfunction, no frequent falls. No back pain. No neck pain. Integumentary: No wounds, no lesions. No rash or pruritus. No unusual bruising. No change in hair or nails. Neurologic: No aphasia. No facial droop. No change in mentation. No head injury. No headache. No paralysis. No paresthesia. Tremor improved. Psychiatric: No depression. No anxiety. No mood swings. Endocrine: No abnormal blood sugars. No weight change. No excessive sweating or thirst. No cold intolerance. Gen: This is a 68-year-old female. She is resting in a chair and appears to be comfortable and in no acute distress. HEENT: Head is atraumatic, normocephalic. Pupils equal, round. Sclerae is anicteric. NECK: Supple. No JVD. No lymphadenopathy. No thyromegaly. LUNGS: Clear to auscultation. No wheezes or rhonchi. No intercostal retractions. HEART: Regular rate and rhythm. No murmur. ABDOMEN: Soft. Bowel sounds are present. No masses. No tenderness. EXTREMITIES: No pedal edema. No calf tenderness. NEUROLOGICAL: Patient is awake, alert and oriented x3. Cranial nerves 2 through 12 are grossly intact. - Labs CBC & Chem 7: 01/06/19 04:49 01/06/19 04:49 Labs: Abnormal Lab Results - Last 24 Hours (Table) 01/04/19 01/05/19 01/05/19 Range/Units 06:21 17:02 20:20 RBC (3.80-5.40) m/uL Hgb (11.4-16.0) gm/dL Hct (34.0-46.0) % APTT (22.0-30.0) sec Sodium (137-145) mmol/L Chloride (98-107) mmol/L Carbon Dioxide (22-30) mmol/L BUN (7-17) mg/dL Creatinine (0.52-1.04) mg/dL POC Glucose (mg/dL) 100 H 135 H (75-99) mg/dL Calcium (8.4-10.2) mg/dL Stool Occult Blood Positive H (Negative) 01/05/19 01/06/19 01/06/19 Range/Units 22:47 04:49 04:49 RBC 3.34 L (3.80-5.40) m/uL Hgb 10.6 L (11.4-16.0) gm/dL Hct 32.6 L (34.0-46.0) % APTT 46.1 H (22.0-30.0) sec Sodium 135 L (137-145) mmol/L Chloride 109 H (98-107) mmol/L Carbon Dioxide 18 L (22-30) mmol/L BUN 73 H (7-17) mg/dL Creatinine 5.36 H (0.52-1.04) mg/dL POC Glucose (mg/dL) (75-99) mg/dL Calcium 7.7 L (8.4-10.2) mg/dL Stool Occult Blood (Negative) Microbiology - Last 24 Hours (Table) 01/04/19 00:05 Urine Culture - Final Urine,Voided Assessment and Plan Plan: 1. Rhabdomyolysis. 2. Generalized weakness with frequent falls and multiple bruising. 3. Left knee swelling rule out effusion. 4. Acute kidney injury with metabolic acidosis secondary to above. 5. Leukocytosis without left shift. 6. Parkinsonism, followed by Dr. Horan. 7. Severe debility and deconditioning. 8. Hyperlipidemia. 9. Diabetes mellitus type 2. 10. Hypertension, presented with hypotension. 11. Cardiomyopathy of unclear etiology. Cardiology consult appreciated. Patient will need to be started on AARON inhibitor and statin when rhabdomyolysis and kidney function improves. 12. History of bipolar disorder on multiple medications. Consult with psychiatry will be added for advice on medication regime. Continue to monitor electrolytes, renal function, CK, IV fluids at 75 mL of normal saline decided by nephrology, continue sodium bicarb. Avoid nephrotoxic agents. Serology testing and renal ultrasound ordered. Patient will be transferred to the [facility] floor with telemetry. continue close electrolyte watching, repeat her blood work in the morning, continue insulin sliding scale, continue blood pressure medication with holding parameters and hold nephrotoxic medication. Plan discussed with reservoir engineering consultant on the case Discharge plan: Inpatient rehab. Consult with Dr. Magana. Impression and plan of care have been directed as dictated by the signing physician. Joi Bonds nurse practitioner acting as scribe for signing physician.
[2019-01-06 14:20] VITALS: BMI 28.0
--- NOTE | 2019-01-06 15:22 | P.CONS ---
History of Present Illness - Chief Complaint Medical debility - History of Present Illness I had the opportunity see patient for inpatient consultation with regard to medical debility. She was admitted to [facility] January 04 history of fall or falls and syncope. Seen in consultation by Noe More nd who note elevated CPK, acute kidney injury. Note normal x-rays of pelvis, knees, chest. CT of head and negative. CT C-spine demonstrates multilevel DDD. OT reports minimal assistance for upper dressing and functional mobility and transfers and maximal assistance for lower dressing, bathing, toileting. PT moderate assistance for gait 14 feet with roller walker. Previous functional history as elicited from patient: 68-year-old left hand white female is lives in 3 floor condo, alone. Retired. Describes independent with own cooking, laundry, driving, standing shower and gait without device. Denies tobacco or alcohol. Dr. Johsnon is regular doctor. Review of Systems Review of systems: ENT: Denies sneezes or discharge. Eyes: Denies discharge or photophobia. Cardiac: Denies chest pain or palpitation. Pulmonary: Mild shortness of breath. Breast: Denies discharge or lumps. Gastrointestinal: Denies nausea, emesis, constipation, diarrhea. Genitourinary: Denies discharge or frequency. Musculoskeletal: Denies muscle or bone aches. Neurologic: Generalized weakness, lowers more so than uppers. Endocrine: Denies shakes or sweats. Oncology: Denies cancers. Dermatologic: Denies rash, itching, pruritus. ALLERGY/immunology: Denies sneezes, rashes. Past Medical History Past Medical History: Diabetes Mellitus, GERD/Reflux, Hypertension Additional Past Medical History / Comment(s): Parkinson's disease History of Any Multi-Drug Resistant Organisms: None Reported Past Surgical History: Section Additional Past Anesthesia/Blood Transfusion Reaction / Comm: Mild Sleep Apnea per patient Past Psychological History: Depression Smoking Status: Former smoker Past Alcohol Use History: Occasional Additional Past Alcohol Use History / Comment(s): Pt states less then 4 drinks a week Past Drug Use History: None Reported Medications and Allergies Home Medications Medication Instructions Recorded Confirmed Type Aspirin EC [Ecotrin Low Dose] 81 mg PO DAILY 01/03/19 01/03/19 History Atenolol [Tenormin] 25 mg PO DAILY 01/03/19 01/03/19 History Carbidopa-Levodopa 25-100 mg 1 dose PO DIRECTED 01/03/19 01/03/19 History [Sinemet 25-100] Escitalopram [Lexapro] 20 mg PO DAILY 01/03/19 01/03/19 History LORazepam [Ativan] 1 mg PO TID 01/03/19 01/03/19 History Meloxicam [Mobic] 15 mg PO DAILY 01/03/19 01/03/19 History Olmesartan/Hydrochlorothiazide 1 tab PO DAILY 01/03/19 01/03/19 History [Benicar Hct 40-25 mg Tablet] Pantoprazole Sodium [Protonix] 40 mg PO DAILY 01/03/19 01/03/19 History Rosuvastatin Calcium [Crestor] 10 mg PO DAILY 01/03/19 01/03/19 History Valbenazine Tosylate [Ingrezza] 80 mg PO DAILY 01/03/19 01/03/19 History Zolpidem [Ambien] 10 mg PO HS 01/03/19 01/03/19 History metFORMIN HCL [Glucophage] 500 mg PO BID 01/03/19 01/03/19 History Allergies Allergy/AdvReac Type Severity Reaction Status Date / Time codeine Allergy Nausea & Verified 01/03/19 20:45 Vomiting Penicillins Allergy Rash/Hives Verified 01/03/19 20:45 Physical Exam Vitals: Vital Signs Temp Pulse Resp BP Pulse Ox 01/06/19 14:00 59 L 24 54/37 01/06/19 12:00 97.5 F L 56 L 21 115/87 96 01/06/19 10:00 56 L 19 104/73 95 01/06/19 08:00 58 L 22 119/81 01/06/19 06:00 97.7 F 51 L 17 100/63 94 L 01/06/19 02:00 48 L 17 92/70 94 L 01/05/19 22:00 53 L 20 94/64 93 L 01/05/19 20:00 98 F 53 L 15 86/60 96 01/05/19 18:00 59 L 16 105/59 96 01/05/19 16:00 54 L 23 99/76 97 Intake and Output 01/06/19 01/06/19 01/06/19 06:59 14:59 22:59 Intake Total 600 150 Output Total 1080 300 Balance -480 -150 Intake: IV 600 150 Sodium Chloride 0.9% 1, 600 150 000 ml @ 75 mls/hr IV . [id number] [facility] Rx#:[id number] Output: Urine 1080 300 Other: Voiding Method Indwelling Catheter Indwelling Catheter Weight 76.4 kg 76.4 kg Skin: Atrophic, intact. General: Medium build and comfortable appearance. Head: Normocephalic, atraumatic. Eyes: Symmetric. Pupils equal round. Ears: Symmetric. Hearing within normal limits. Mouth: Clear. Neck: Supple. Carotid without bruit. Cardiac: Regular rate and rhythm. Lungs: Clear anteriorly and posteriorly. Abdomen: Soft active nontender. Extremities: Normal tone. Neurological: Mental status: Alert, cooperative, pleasant. Cranial nerves: Symmetric facial tone and trapezius. Motor: Poor elevation all 4 limbs. Sensation: Intact throughout. DTRs: Symmetric and equal throughout. Mobility: Patient reports two-person assistance for transfer from bed to Katie chair, nursing. Results CBC & Chem 7: 01/06/19 04:49 01/06/19 04:49 Labs: Abnormal Lab Results - Last 24 Hours (Table) 01/04/19 01/05/19 01/05/19 Range/Units 06:21 17:02 20:20 RBC (3.80-5.40) m/uL Hgb (11.4-16.0) gm/dL Hct (34.0-46.0) % APTT (22.0-30.0) sec Sodium (137-145) mmol/L Chloride (98-107) mmol/L Carbon Dioxide (22-30) mmol/L BUN (7-17) mg/dL Creatinine (0.52-1.04) mg/dL POC Glucose (mg/dL) 100 H 135 H (75-99) mg/dL Calcium (8.4-10.2) mg/dL Stool Occult Blood Positive H (Negative) 01/05/19 01/06/19 01/06/19 Range/Units 22:47 04:49 04:49 RBC 3.34 L (3.80-5.40) m/uL Hgb 10.6 L (11.4-16.0) gm/dL Hct 32.6 L (34.0-46.0) % APTT 46.1 H (22.0-30.0) sec Sodium 135 L (137-145) mmol/L Chloride 109 H (98-107) mmol/L Carbon Dioxide 18 L (22-30) mmol/L BUN 73 H (7-17) mg/dL Creatinine 5.36 H (0.52-1.04) mg/dL POC Glucose (mg/dL) (75-99) mg/dL Calcium 7.7 L (8.4-10.2) mg/dL Stool Occult Blood (Negative) Microbiology - Last 24 Hours (Table) 01/04/19 00:05 Urine Culture - Final Urine,Voided Assessment and Plan (1) Acute kidney failure Current Visit: Yes Status: Acute Code(s): N17.9 - ACUTE KIDNEY FAILURE, UNSPECIFIED SNOMED Code(s): 03500189 (2) Rhabdomyolysis Current Visit: Yes Status: Acute Code(s): M62.82 - RHABDOMYOLYSIS SNOMED Code(s): 206345439 Plan: Impression: 1. Medical debility. 2. Rhabdomyolysis. 3. Acute kidney injury. 4. Fall or falls. 5. Hypertension. 6. Diabetes. 7. GERD. Constant plan: At this time PT and OT are ongoing. Safety concerns noted. Have discussed possible inpatient rehab with patient she seems agreeable. Noted rehab unit fall today but discharge is planned throughout week.
[2019-01-06 17:09] LABS: Glucose,Whole Blood 91 mg/dL (75-99)
[2019-01-06 20:46] LABS: Glucose,Whole Blood 125 mg/dL (75-99)
[2019-01-06] MEDS: LORazepam 1 MG TAB PO PRN (20:57)
[2019-01-07 07:20] LABS: Glucose,Whole Blood 89 mg/dL (75-99)
[2019-01-07] MEDS: INSULIN ASPART (NovoLOG) 100 UNIT/ML VIAL SQ SCH ×4 (09:05→20:56)
[2019-01-07] MEDS: ESCITALOPRAM 20 MG TAB PO SCH (09:09)
[2019-01-07] MEDS: ASPIRIN 81 MG PO SCH (09:09)
[2019-01-07] MEDS: PANTOPRAZOLE 40 MG TABLET PO SCH (09:09)
[2019-01-07] MEDS: METOPROLOL TARTRATE 12.5 MG TAB PO SCH ×2 (09:09→20:57)
[2019-01-07 10:10] LABS: Potassium 4.1 mmol/L (3.5-5.1)
--- NOTE | 2019-01-07 10:26 | P.PN ---
Subjective Patient is seen in follow for acute kidney injury. Creatinine was 4.03 on admission and is up to 5.48 today. CK levels are trending down. She is maintained on normal saline at 75 mL an hour. Patient admits to good urine output. No vomiting or diarrhea. Oral intake is fair. Vital signs are stable. General: The patient appeared well nourished and normally developed. HEENT: Head exam is unremarkable. Neck is without jugular venous distension. LUNGS: Lungs are clear to auscultation and percussion. Breath sounds decreased. HEART: Rate and Rhythm are regular. First and second heart sounds normal. No murmurs, rubs or gallops. ABDOMEN: Abdominal exam reveals normal bowel sounds. Non-tender and non- distended. No evidence of peritonitis. EXTREMITITES: No clubbing, cyanosis, or edema. Objective - Vital Signs Vital signs: Vital Signs Temp 97.9 F 01/07/19 05:00 Pulse 55 L 01/07/19 05:00 Resp 17 01/07/19 07:26 BP 106/69 01/07/19 05:00 Pulse Ox 99 01/07/19 05:00 Intake & Output 01/06/19 01/07/19 01/07/19 18:59 06:59 18:59 Intake Total 450 590 Output Total 625 Balance -175 590 Weight 76.4 kg Intake: IV 450 Sodium Chloride 0.9% 1, 450 000 ml @ 75 mls/hr IV . [id number] [facility] Rx#:[id number] Oral 590 Output: Urine 625 Other: Voiding Method Indwelling Catheter Bedside Commode Bedside Commode # Voids 2 1 - Labs CBC & Chem 7: 01/06/19 04:49 01/07/19 07:52 Labs: Abnormal Lab Results - Last 24 Hours (Table) 01/06/19 01/07/19 01/07/19 Range/Units 20:44 07:52 07:52 Chloride 109 H (98-107) mmol/L Carbon Dioxide 20 L (22-30) mmol/L BUN 68 H (7-17) mg/dL Creatinine 5.48 H (0.52-1.04) mg/dL POC Glucose (mg/dL) 125 H (75-99) mg/dL Calcium 8.0 L (8.4-10.2) mg/dL Creatine Kinase 5384 H* (30-135) U/L Assessment and Plan Plan: Assessment: 1. Acute kidney injury secondary to ATN secondary to rhabdomyolysis, hypotension as well as nonsteroidals. Creatinine was 4.03 on admission and is up to 5.48 today. Need to rule out GN she has proteinuria on UA. Also rule out obstructive uropathy. Unknown baseline renal function. 2. Rhabdomyolysis. CK levels trending down with IV hydration. 3. Systolic CHF with ejection fraction of 35-40%. Currently compensated. 4. Metabolic acidosis secondary to acute kidney injury and IV fluids maintained on oral sodium bicarbonate. 5. Diabetes mellitus. Plan: Maintain normal saline at 75 mL an hour. Check renal ultrasound. Quantify proteinuria and check serologies. Continue to monitor renal function and urine output closely. No urgent need for renal replacement therapy at this time. I did discuss with the patient that if her renal function doesn't improve in the next 24-48 hours, then may need to initiate renal replacement therapy. Check phosphorus level.
--- NOTE | 2019-01-07 11:13 | US ---
EXAMINATION TYPE: US kidneys/renal and bladder DATE OF EXAM: 01/07/2019 COMPARISON: NONE CLINICAL HISTORY: pato. PATO, exam done portable. EXAM MEASUREMENTS: Right Kidney: 10.0 x 5.4 x 5.2 cm Left Kidney: 10.9 x 6.0 x 5.4 cm Difficult study due to exam done with patient sitting up in chair. Right Kidney: no hydronephrosis or masses seen Left Kidney: no hydronephrosis or masses seen, inferior pole limited by overlying bowel gas Bladder: not fully distended Bilateral Jets seen: no There is no evidence for hydronephrosis at this point in time. No nephrolithiasis is seen. No keith s are identified. The urinary bladder is poorly distended. Bilateral ureteral jets are not seen. IMPRESSION: Suboptimal study without hydronephrosis identified bilaterally.
[2019-01-07] MEDS: CARBIDOPA-LEVODOPA 25-100 MG 1 EACH TAB PO SCH ×3 (11:49→20:59)
[2019-01-07] MEDS: SODIUM BICARBONATE TAB 650 MG TAB PO SCH ×4 (11:49→20:58)
[2019-01-07] MEDS: SODIUM CHLORIDE 0.9% 1,000 ML IV SCH (11:50)
[2019-01-07 11:57] LABS: Glucose,Whole Blood 124 mg/dL (75-99)
--- NOTE | 2019-01-07 14:26 | P.PN ---
Subjective This is a pleasant 68-year-old female who presented to the hospital after suffering a fall and was found to be in rhabdomyolysis. She was also found to have elevated troponin and LV dysfunction. She is currently maintained on aspirin 81 mg daily and lopressor 12.5 mg BID. Blood pressure 112/73 heart rate 57 afebrile and maintaining oxygen saturation on room air. Laboratory data reviewed, sodium 137, potassium 5.48, GFR 8, CK 5,384. She denies chest pain, shortness of breath, dizziness or palpitations. GENERAL: Well-appearing, well-nourished and in no acute distress. NECK: Supple without JVD or thyromegaly. LUNGS: Breath sounds clear to auscultation bilaterally. Respiration equal and unlabored. No wheezes, rales or rhonchi. HEART: Regular rate and rhythm without murmurs, rubs or gallops. S1 and S2 heard. EXTREMITIES: Normal range of motion, no edema. No clubbing or cyanosis. Peripheral pulses intact. ASSESSMENT Rhabdomyolysis secondary to fall Impaired LV systolic function and elevated troponins likely secondary to stress cardiomyopathy with global hypokinesia on echocardiogram. Overall euvolemic clinically. Acute kidney injury Hypertension Diabetes mellitus PLAN Continue current medical regimen with beta blockers and aspirin. Further evaluation with cardiac catheterization will take place down the road as an outpatient when her renal function improves. Possible dialysis if renal profile does not improve per nephrology. Nurse Practitioner note has been reviewed, I agree with a documented findings and plan of care. Patient was seen and examined. Objective - Vital Signs Vital signs: Vital Signs Temp 98.2 F 01/07/19 12:12 Pulse 57 L 01/07/19 12:12 Resp 16 01/07/19 12:12 BP 112/73 01/07/19 12:12 Pulse Ox 100 01/07/19 12:12 Intake & Output 01/06/19 01/07/19 01/07/19 18:59 06:59 18:59 Intake Total 878 178 9247 Output Total 625 900 Balance -175 590 625 Weight 76.4 kg Intake: IV 450 525 Sodium Chloride 0.9% 1, 450 525 000 ml @ 75 mls/hr IV . [id number] [facility] Rx#:[id number] Oral 590 1000 Output: Urine 625 900 Other: Voiding Method Indwelling Catheter Bedside Commode Bedside Commode # Voids 2 1 - Labs CBC & Chem 7: 01/06/19 04:49 01/07/19 07:52 Labs: Abnormal Lab Results - Last 24 Hours (Table) 01/06/19 01/07/19 01/07/19 Range/Units 20:44 07:52 07:52 Chloride 109 H (98-107) mmol/L Carbon Dioxide 20 L (22-30) mmol/L BUN 68 H (7-17) mg/dL Creatinine 5.48 H (0.52-1.04) mg/dL POC Glucose (mg/dL) 125 H (75-99) mg/dL Uric Acid (3.7-7.4) mg/dL Calcium 8.0 L (8.4-10.2) mg/dL Creatine Kinase 5384 H* (30-135) U/L U Random Total Protein (<12) mg/dL 01/07/19 01/07/19 01/07/19 Range/Units 07:52 11:55 12:20 Chloride (98-107) mmol/L Carbon Dioxide (22-30) mmol/L BUN (7-17) mg/dL Creatinine (0.52-1.04) mg/dL POC Glucose (mg/dL) 124 H (75-99) mg/dL Uric Acid <0.5 L (3.7-7.4) mg/dL Calcium (8.4-10.2) mg/dL Creatine Kinase (30-135) U/L U Random Total Protein 27 H (<12) mg/dL
--- NOTE | 2019-01-07 14:31 | P.PN ---
Subjective Progress Note Date: 01/07/19 This is 68 years old female with past medical history significant for Parkinson disease presents to the emergency department after sustaining fall at home. Patient was able to make a phone call and call 911 few hours after falling on the floor and was brought into the emergency department with multiple bruises on her body worse on the left knee. Patient was alert awake and oriented at baseline mental status able to provide information and still at baseline mental status. Patient was on the floor for several hours and sure about the exact time of fall denied loss of consciousness and think that it was mechanical to start with. Patient denied head trauma. Patient had multiple falls in the past due to her Parkinson disease but nothing significant to the point where she was on the floor a few hours. Patient is denying and recent urinary tract infection recent upper respiratory symptoms including chest pain shortness breath nausea vomiting or nasal drainage. Patient denied any recent change in her medication. Patient is denying constitutional symptoms including night sweats low-grade fe renato or weight loss. Patient currently is improved and saying that she feels much improved since admission. Patient was admitted to the intensive care unit due to diagnosis of acute kidney injury with rhabdomyolysis and was started on aggressive IV hydration and electrolyte replacement protocol. Patient is denying tobacco alcohol or drug abuse 01/05: Patient continued to be hemodynamically stable no major events reported by nursing staff patient is sitting up in chair tolerating diet with Mena catheter in place and dark urine noted in the bag. Patient is denying chest pain, shortness breath, nausea, vomiting, dumping, dizziness or lightheadedness and asking if she can go home 01/06: Patient remains in the intensive care unit and is now in [address] with telemetry. We will add and consults for psychiatric evaluation of her current medications for bipolar disorder. Patient does state her tremor is better. Has been improved on hospital. Consult with Dr. Magana. Patient is to continue I&O and daily weights. She has had good urine output and 100 mL per hour. Heart rate 56, blood pressure 104/73, pulse ox 95% on 2 L nasal cannula. Repeat BUN 73, creatinine 5.36, sodium 135, potassium 4.3, chloride 109, CO2 18. Patient is followed by nephrology. Serology testing, ultrasound of the kidneys ordered. Patient is continued on IV fluids and oral sodium bicarb. Cardiology is following for stress cardiomyopathy versus ischemia. Patient to be started on Aaron and statins when rhabdomyolysis and kidney function improves. Continue Lopressor 12.5 mg twice daily. [employer] following on an as-needed basis. Echocardiogram reveals EF between 35 and 40%, moderate global hypokinesia of the LV, no aortic stenosis, mild mitral regurgitation, mild tricuspid regurgitation, mild pulmonary hypertension. Right ventricular systolic pressure 35.86. 01/07: The patient is now seen on the [facility] floor. Repeat lab work this morning reveals BUN is 68, creatinine 5.48, CK 5384. Renal ultrasound shows a suboptimal study without hydronephrosis identified bilaterally. Dr. Valentine has ordered serology testing. Patient may require dialysis. Discussed discharge planning with the patient. She was seen by Dr. Magana and may be a candidate for [facility] inpatient rehab. Social work is following. Insurance authorization process to be started. We will resume patient back on [employer] and family member will obtain this from her home. Patient will be taking her own home medication while in the hospital. Objective - Vital Signs Vital signs: Vital Signs Temp 98.2 F 01/07/19 12:12 Pulse 57 L 01/07/19 12:12 Resp 16 01/07/19 12:12 BP 112/73 01/07/19 12:12 Pulse Ox 100 01/07/19 12:12 Intake & Output 01/06/19 01/07/19 01/07/19 18:59 06:59 18:59 Intake Total 284 591 9890 Output Total 625 900 Balance -175 590 625 Weight 76.4 kg Intake: IV 450 525 Sodium Chloride 0.9% 1, 450 525 000 ml @ 75 mls/hr IV . [id number] [facility] Rx#:[id number] Oral 590 1000 Output: Urine 625 900 Other: Voiding Method Indwelling Catheter Bedside Commode Bedside Commode # Voids 2 1 - Exam Review Of Systems: Constitutional: No fever, no chills, no night sweats. No weight change. R eports fatigue. No daytime sleepiness. EENT: No headache. No blurred vision or double vision, no loss of vision. No loss of Hearing, no ringing in the ears, no dizziness. No nasal drainage or congestion. No epistaxis. No sore throat. Lungs: No shortness of breath, cough, no sputum production. No wheezing. Cardiovascular: No chest pain, no lower extremity edema. No palpitations. No paroxysmal nocturnal dyspnea. No orthopnea. No lightheadedness or dizziness. No syncopal episodes. Abdominal: No abdominal pain. No nausea, vomiting. No diarrhea. No constipation. No bloody or tarry stools.. No loss of appetite. Genitourinary: No dysuria, increased frequency, urgency. No urinary retention. Musculoskeletal: No myalgias. Reports muscle weakness, no gait dysfunction, no frequent falls. No back pain. No neck pain. Integumentary: No wounds, no lesions. No rash or pruritus. No unusual bruising. No change in hair or nails. Neurologic: No aphasia. No facial droop. No change in mentation. No head injury. No headache. No paralysis. No paresthesia. Tremor improved. Psychiatric: No depression. No anxiety. No mood swings. Endocrine: No abnormal blood sugars. No weight change. No excessive sweating or thirst. No cold intolerance. Gen: This is a 68-year-old female. She is resting in a chair and appears to be comfortable and in no acute distress. Multiple family members at bedside HEENT: Head is atraumatic, normocephalic. Pupils equal, round. Sclerae is anicteric. NECK: Supple. No JVD. No lymphadenopathy. No thyromegaly. LUNGS: Clear to auscultation. No wheezes or rhonchi. No intercostal retractions. HEART: Regular rate and rhythm. No murmur. ABDOMEN: Soft. Bowel sounds are present. No masses. No tenderness. EXTREMITIES: No pedal edema. No calf tenderness. NEUROLOGICAL: Patient is awake, alert and oriented x3. Cranial nerves 2 through 12 are grossly intact. - Labs CBC & Chem 7: 01/06/19 04:49 01/07/19 07:52 Labs: Abnormal Lab Results - Last 24 Hours (Table) 01/06/19 01/07/19 01/07/19 Range/Units 20:44 07:52 07:52 Chloride 109 H (98-107) mmol/L Carbon Dioxide 20 L (22-30) mmol/L BUN 68 H (7-17) mg/dL Creatinine 5.48 H (0.52-1.04) mg/dL POC Glucose (mg/dL) 125 H (75-99) mg/dL Uric Acid (3.7-7.4) mg/dL Calcium 8.0 L (8.4-10.2) mg/dL Creatine Kinase 5384 H* (30-135) U/L U Random Total Protein (<12) mg/dL 01/07/19 01/07/19 01/07/19 Range/Units 07:52 11:55 12:20 Chloride (98-107) mmol/L Carbon Dioxide (22-30) mmol/L BUN (7-17) mg/dL Creatinine (0.52-1.04) mg/dL POC Glucose (mg/dL) 124 H (75-99) mg/dL Uric Acid <0.5 L (3.7-7.4) mg/dL Calcium (8.4-10.2) mg/dL Creatine Kinase (30-135) U/L U Random Total Protein 27 H (<12) mg/dL Assessment and Plan Plan: 1. Rhabdomyolysis. 2. Generalized weakness with frequent falls and multiple bruising. 3. Left knee swelling rule out effusion. 4. Acute kidney injury with metabolic acidosis secondary to above. 5. Leukocytosis without left shift. 6. Parkinsonism, followed by Dr. Horan. Patient will be resumed on Ingrez[employer] fr om home. 7. Severe debility and deconditioning. 8. Hyperlipidemia. 9. Diabetes mellitus type 2. 10. Hypertension, presented with hypotension. 11. Cardiomyopathy of unclear etiology. Cardiology consult appreciated. Patient will need to be started on AARON inhibitor and statin when rhabdomyolysis and kidney function improves. 12. History of bipolar disorder on multiple medications. Consult with psychiatry will be added for advice on medication regime. Continue to monitor electrolytes, renal function, CK, IV fluids discontinued. Consult with nephrology appreciated. Repeat lab work ordered for tomorrow. Continue sodium bicarb. Avoid nephrotoxic agents. Serology testing. Renal ultrasound as above. Continue close electrolyte watching, repeat her blood work in the morning, continue insulin sliding scale, continue blood pressure medication with holding parameters and hold nephrotoxic medication. Plan discussed with oncology consultant on the case Discharge plan: Inpatient rehab. Consult with Dr. Magana. Impression and plan of care have been directed as dictated by the signing physic ian. Joi Bonds nurse practitioner acting as scribe for signing physician.
[2019-01-07 17:08] LABS: Anti-DNA, DS unit <1.0 IU/mL; DNA Double-Stranded NEGATIVE (NEGATIVE)
[2019-01-07 17:22] LABS: Hepatitis A Antibody IgM Non-Reactive (Non-Reactive); Hepatitis B Core IgM Non-Reactive (Non-Reactive)
[2019-01-07 17:43] LABS: Glucose,Whole Blood 110 mg/dL (75-99)
[2019-01-07 17:54] LABS: Protein, Total 4.2 g/dL (6.2-8.2)
[2019-01-07] MEDS: VALBENAZINE TOSYLATE 80 MG PO SCH (18:58)
[2019-01-07] MEDS: LORazepam 1 MG TAB PO PRN (19:41)
[2019-01-07 20:12] LABS: Glucose,Whole Blood 191 mg/dL (75-99)
[2019-01-08] MEDS: SODIUM CHLORIDE 0.9% 1,000 ML IV SCH ×2 (00:06→12:10)
[2019-01-08 06:58] LABS: Glucose,Whole Blood 105 mg/dL (75-99)
[2019-01-08] MEDS: INSULIN ASPART (NovoLOG) 100 UNIT/ML VIAL SQ SCH ×4 (08:43→21:32)
[2019-01-08] MEDS: METOPROLOL TARTRATE 12.5 MG TAB PO SCH ×2 (08:46→21:05)
[2019-01-08] MEDS: PANTOPRAZOLE 40 MG TABLET PO SCH (08:46)
[2019-01-08] MEDS: SODIUM BICARBONATE TAB 650 MG TAB PO SCH ×4 (08:46→21:05)
[2019-01-08] MEDS: ASPIRIN 81 MG PO SCH (08:46)
[2019-01-08] MEDS: ESCITALOPRAM 20 MG TAB PO SCH (08:48)
[2019-01-08] MEDS: CARBIDOPA-LEVODOPA 25-100 MG 1 EACH TAB PO SCH ×3 (08:48→21:31)
[2019-01-08 08:53] LABS: Calcium 8.6 mg/dL (8.4-10.2); Magnesium 1.6 mg/dL (1.6-2.3); Phosphorus 4.2 mg/dL (2.5-4.5)
[2019-01-08 10:08] LABS: Albumin 2.61 g/dL (3.80-4.90); Gamma Globulin 0.31 g/dL (0.70-1.50)
--- NOTE | 2019-01-08 10:27 | P.PN ---
Subjective Patient is seen in follow for acute kidney injury. Creatinine was 4.03 on admission and peaked at 5.48 this admission - 5.19 today. CK levels are trending down. She is maintained on normal saline at 75 mL an hour. Patient admits to good urine output. No vomiting or diarrhea. Oral intake is fair. Vital signs are stable. General: The patient appeared well nourished and normally developed. HEENT: Head exam is unremarkable. Neck is without jugular venous distension. LUNGS: Lungs are clear to auscultation and percussion. Breath sounds decreased. HEART: Rate and Rhythm are regular. First and second heart sounds normal. No murmurs, rubs or gallops. ABDOMEN: Abdominal exam reveals normal bowel sounds. Non-tender and non- distended. No evidence of peritonitis. EXTREMITITES: No clubbing, cyanosis, or edema. Objective - Vital Signs Vital signs: Vital Signs Temp 98.3 F 01/08/19 04:59 Pulse 69 01/08/19 04:59 Resp 16 01/08/19 04:59 BP 119/78 01/08/19 04:59 Pulse Ox 97 01/08/19 04:59 Intake & Output 01/07/19 01/08/19 01/08/19 18:59 06:59 18:59 Intake Total 2652 590 Output Total 1550 650 Balance 1102 -60 Intake: IV 525 Sodium Chloride 0.9% 1, 525 000 ml @ 75 mls/hr IV . [id number] [facility] Rx#:[id number] Oral 2127 590 Output: Urine 1550 650 Other: Voiding Method Bedside Commode Bedside Commode # Voids 5 4 # Bowel Movements 1 1 - Labs CBC & Chem 7: 01/06/19 04:49 01/08/19 07:57 Labs: Abnormal Lab Results - Last 24 Hours (Table) 01/07/19 01/07/19 01/07/19 Range/Units 07:52 07:52 11:55 Chloride (98-107) mmol/L Carbon Dioxide (22-30) mmol/L BUN (7-17) mg/dL Creatinine (0.52-1.04) mg/dL POC Glucose (mg/dL) 124 H (75-99) mg/dL Uric Acid <0.5 L (3.7-7.4) mg/dL Creatine Kinase (30-135) U/L Total Protein (PEP) 4.2 L (6.2-8.2) g/dL Albumin (PEP) 2.61 L (3.80-4.90) g/dL Ptmjy-8-Kegypwvko 0.50 L (0.60-1.00) g/dL Beta Globulins 0.46 L (0.60-1.30) g/dL Gamma Globulins 0.31 L (0.70-1.50) g/dL U Random Total Protein (<12) mg/dL Hep C IgG Ab Reactive H (Non-Reactive) 01/07/19 01/07/19 01/07/19 Range/Units 12:20 17:41 20:10 Chloride (98-107) mmol/L Carbon Dioxide (22-30) mmol/L BUN (7-17) mg/dL Creatinine (0.52-1.04) mg/dL POC Glucose (mg/dL) 110 H 191 H (75-99) mg/dL Uric Acid (3.7-7.4) mg/dL Creatine Kinase (30-135) U/L Total Protein (PEP) (6.2-8.2) g/dL Albumin (PEP) (3.80-4.90) g/dL Okegi-6-Nuyxliqjw (0.60-1.00) g/dL Beta Globulins (0.60-1.30) g/dL Gamma Globulins (0.70-1.50) g/dL U Random Total Protein 27 H (<12) mg/dL Hep C IgG Ab (Non-Reactive) 01/08/19 01/08/19 Range/Units 06:56 07:57 Chloride 111 H (98-107) mmol/L Carbon Dioxide 20 L (22-30) mmol/L BUN 71 H (7-17) mg/dL Creatinine 5.19 H (0.52-1.04) mg/dL POC Glucose (mg/dL) 105 H (75-99) mg/dL Uric Acid (3.7-7.4) mg/dL Creatine Kinase 2540 H* (30-135) U/L Total Protein (PEP) (6.2-8.2) g/dL Albumin (PEP) (3.80-4.90) g/dL Llaax-3-Wpnpodffp (0.60-1.00) g/dL Beta Globulins (0.60-1.30) g/dL Gamma Globulins (0.70-1.50) g/dL U Random Total Protein (<12) mg/dL Hep C IgG Ab (Non-Reactive) Assessment and Plan Plan: Assessment: 1. Acute kidney injury secondary to ATN secondary to rhabdomyolysis, hypotension as well as nonsteroidals. Creatinine was 4.03 on admission and peaked at 5.48 this admission - 5.19 today. Need to rule out GN she has proteinuria on UA. UPC 0.6. No evidence of hydronephrosis noted on renal ultrasound. Urine eosinophils negative. Baseline creatinine near 1 from November 2018 per attending physician. 2. Rhabdomyolysis. CK levels trending down with IV hydration. 3. Systolic CHF with ejection fraction of 35-40%. Currently compensated. 4. Metabolic acidosis secondary to acute kidney injury and IV fluids maintained on oral sodium bicarbonate. 5. Diabetes mellitus. Plan: Maintain normal saline at 75 mL an hour. Follow-up serologies. Continue to monitor renal function and urine output closely. No urgent need for renal replacement therapy at this time. Will consider kidney biopsy pending above results. This was discussed with the patient.
[2019-01-08 11:31] LABS: Glucose,Whole Blood 147 mg/dL (75-99)
[2019-01-08 12:40] LABS: Complement C3 77.8 mg/dL (80.0-207.0)
[2019-01-08 15:05] LABS: C-ANCA <1:20 Titer (<1:20); P-ANCA <1:20 Titer (<1:20)
--- NOTE | 2019-01-08 15:24 | P.PN ---
Subjective Progress Note Date: 01/08/19 This is 68 years old female with past medical history significant for Parkinson disease presents to the emergency department after sustaining fall at home. Patient was able to make a phone call and call 911 few hours after falling on the floor and was brought into the emergency department with multiple bruises on her body worse on the left knee. Patient was alert awake and oriented at baseline mental status able to provide information and still at baseline mental status. Patient was on the floor for several hours and sure about the exact time of fall denied loss of consciousness and think that it was mechanical to start with. Patient denied head trauma. Patient had multiple falls in the past due to her Parkinson disease but nothing significant to the point where she was on the floor a few hours. Patient is denying and recent urinary tract infection recent upper respiratory symptoms including chest pain shortness breath nausea vomiting or nasal drainage. Patient denied any recent change in her medication. Patient is denying constitutional symptoms including night sweats low-grade fe renato or weight loss. Patient currently is improved and saying that she feels much improved since admission. Patient was admitted to the intensive care unit due to diagnosis of acute kidney injury with rhabdomyolysis and was started on aggressive IV hydration and electrolyte replacement protocol. Patient is denying tobacco alcohol or drug abuse 01/05: Patient continued to be hemodynamically stable no major events reported by nursing staff patient is sitting up in chair tolerating diet with Mena catheter in place and dark urine noted in the bag. Patient is denying chest pain, shortness breath, nausea, vomiting, dumping, dizziness or lightheadedness and asking if she can go home 01/06: Patient remains in the intensive care unit and is now in [address] with telemetry. We will add and consults for psychiatric evaluation of her current medications for bipolar disorder. Patient does state her tremor is better. Has been improved on hospital. Consult with Dr. Magana. Patient is to continue I&O and daily weights. She has had good urine output and 100 mL per hour. Heart rate 56, blood pressure 104/73, pulse ox 95% on 2 L nasal cannula. Repeat BUN 73, creatinine 5.36, sodium 135, potassium 4.3, chloride 109, CO2 18. Patient is followed by nephrology. Serology testing, ultrasound of the kidneys ordered. Patient is continued on IV fluids and oral sodium bicarb. Cardiology is following for stress cardiomyopathy versus ischemia. Patient to be started on Aaron and statins when rhabdomyolysis and kidney function improves. Continue Lopressor 12.5 mg twice daily. Content Strategist following on an as-needed basis. Echocardiogram reveals EF between 35 and 40%, moderate global hypokinesia of the LV, no aortic stenosis, mild mitral regurgitation, mild tricuspid regurgitation, mild pulmonary hypertension. Right ventricular systolic pressure 35.86. 01/07: The patient is now seen on the [facility] floor. Repeat lab work this morning reveals BUN is 68, creatinine 5.48, CK 5384. Renal ultrasound shows a suboptimal study without hydronephrosis identified bilaterally. Dr. Valentine has ordered serology testing. Patient may require dialysis. Discussed discharge planning with the patient. She was seen by Dr. Magana and may be a candidate for [facility] inpatient rehab. Social work is following. Insurance authorization process to be started. We will resume patient back on [employer] and family member will obtain this from her home. Patient will be taking her own home medication while in the hospital. 01/08: Patient denies any new complaints. She's had no vomiting or diarrhea. She is urinating sufficiently. Repeat BUN 71 and creatinine 5.19. CK is 2540. Patient is continued on IV fluids 75 mL/h. Patient has been afebrile, heart rate 59, blood pressure 102/60, pulse ox 98% on room air. Social work is working on authorization from her insurance for [facility] inpatient rehab. We will plan to transfer the patient wants us authorization is obtained. Objective - Vital Signs Vital signs: Vital Signs Temp 98.5 F 01/08/19 11:56 Pulse 59 L 01/08/19 11:56 Resp 15 01/08/19 11:56 BP 102/68 01/08/19 11:56 Pulse Ox 98 01/08/19 11:56 Intake & Output 01/07/19 01/08/19 01/08/19 18:59 06:59 18:59 Intake Total 2652 590 Output Total 1550 650 Balance 1102 -60 Intake: IV 525 Sodium Chloride 0.9% 1, 525 000 ml @ 75 mls/hr IV . [id number] [facility] Rx#:[id number] Oral 2127 590 Output: Urine 1550 650 Other: Voiding Method Bedside Commode Bedside Commode Bedside Commode # Voids 5 4 # Bowel Movements 1 1 - Exam Review Of Systems: Constitutional: No fever, no chills, no night sweats. No weight change. Reports fatigue. No daytime sleepiness. EENT: No headache. No blurred vision or double vision, no loss of vision. No loss of Hearing, no ringing in the ears, no dizziness. No nasal drainage or congestion. No epistaxis. No sore throat. Lungs: No shortness of breath, cough, no sputum production. No wheezing. Cardiovascular: No chest pain, no lower extremity edema. No palpitations. No paroxysmal nocturnal dyspnea. No orthopnea. No lightheadedness or dizziness. No syncopal episodes. Abdominal: No abdominal pain. No nausea, vomiting. No diarrhea. No constipation. No bloody or tarry stools.. No loss of appetite. Genitourinary: No dysuria, increased frequency, urgency. No urinary retention. Musculoskeletal: No myalgias. Reports muscle weakness, no gait dysfunction, no frequent falls. Integumentary: No wounds, no lesions. No rash or pruritus. No unusual bruising. No change in hair or nails. Neurologic: No aphasia. No facial droop. No change in mentation. No head injury. No headache. No paralysis. No paresthesia. Tremor improved. Psychiatric: No depression. No anxiety. No mood swings. Endocrine: No abnormal blood sugars. Gen: This is a 68-year-old female. She is resting in bed and appears to be comfortable and in no acute distress. Sister is at bedside HEENT: Head is atraumatic, normocephalic. Pupils equal, round. Sclerae is anicteric. NECK: Supple. No JVD. No lymphadenopathy. No thyromegaly. LUNGS: Clear to auscultation. No wheezes or rhonchi. No intercostal retractio ns. HEART: Regular rate and rhythm. No murmur. ABDOMEN: Soft. Bowel sounds are present. No masses. No tenderness. EXTREMITIES: No pedal edema. No calf tenderness. NEUROLOGICAL: Patient is awake, alert and oriented x3. Cranial nerves 2 through 12 are grossly intact. - Labs CBC & Chem 7: 01/06/19 04:49 01/08/19 07:57 Labs: Abnormal Lab Results - Last 24 Hours (Table) 01/07/19 01/07/1919 Range/Units 07:52 17:41 20:10 Chloride (98-107) mmol/L Carbon Dioxide (22-30) mmol/L BUN (7-17) mg/dL Creatinine (0.52-1.04) mg/dL POC Glucose (mg/dL) 110 H 191 H (75-99) mg/dL Creatine Kinase (30-135) U/L Total Protein (PEP) 4.2 L (6.2-8.2) g/dL Albumin (PEP) 2.61 L (3.80-4.90) g/dL Oeeuu-7-Eofeaqjdx 0.50 L (0.60-1.00) g/dL Beta Globulins 0.46 L (0.60-1.30) g/dL Gamma Globulins 0.31 L (0.70-1.50) g/dL Complement C3 77.8 L (80.0-207.0) mg/dL Hep C IgG Ab Reactive H (Non-Reactive) 01/08/19 01/08/19 01/08/19 Range/Units 06:56 07:57 11:30 Chloride 111 H (98-107) mmol/L Carbon Dioxide 20 L (22-30) mmol/L BUN 71 H (7-17) mg/dL Creatinine 5.19 H (0.52-1.04) mg/dL POC Glucose (mg/dL) 105 H 147 H (75-99) mg/dL Creatine Kinase 2540 H* (30-135) U/L Total Protein (PEP) (6.2-8.2) g/dL Albumin (PEP) (3.80-4.90) g/dL Kmoyr-9-Ifrtqveef (0.60-1.00) g/dL Beta Globulins (0.60-1.30) g/dL Gamma Globulins (0.70-1.50) g/dL Complement C3 (80.0-207.0) mg/dL Hep C IgG Ab (Non-Reactive) Assessment and Plan Plan: 1. Rhabdomyolysis. 2. Generalized weakness with frequent falls and multiple bruising. 3. Left knee swelling rule out effusion. 4. Acute kidney injury with metabolic acidosis secondary to above. 5. Leukocytosis without left shift. 6. Parkinsonism, followed by Dr. Horan. Patient will be resumed on Ingrezza from home. 7. Severe debility and deconditioning. 8. Hyperlipidemia. 9. Diabetes mellitus type 2. 10. Hypertension, presented with hypotension. 11. Cardiomyopathy of unclear etiology. Cardiology consult appreciated. Patient will need to be started on AARON inhibitor and statin when rhabdomyolysis and kidney function improves. 12. History of bipolar disorder on multiple medications. Consult with psychiatry will be added for advice on medication regime. Continue to monitor electrolytes, renal function, CK, IV fluids continued. Consult with nephrology appreciated. Repeat lab work ordered for tomorrow. Continue sodium bicarb. Avoid nephrotoxic agents. Serology testing. Renal ultrasound as above. Continue insulin sliding scale, continue blood pressure medication with holding parameters and hold nephrotoxic medication. Discharge plan: Inpatient rehab. Consult with Dr. Magana. Impression and plan of care have been directed as dictated by the signing physician. Joi Bonds nurse practitioner acting as scribe for signing physician.
[2019-01-08 17:11] VITALS: RESP 16
[2019-01-08 17:15] LABS: Glucose,Whole Blood 115 mg/dL (75-99)
[2019-01-08] MEDS ORDERED: VALBENAZINE TOSYLATE 80 MG PO SCH (17:30)
[2019-01-08] MEDS: VALBENAZINE TOSYLATE 80 MG PO SCH (18:58)
[2019-01-08] MEDS: LORazepam 1 MG TAB PO PRN (21:02)
[2019-01-08 21:09] LABS: Glucose,Whole Blood 141 mg/dL (75-99)
[2019-01-09] MEDS: SODIUM CHLORIDE 0.9% 1,000 ML IV SCH (03:59)
[2019-01-09 05:15] VITALS: BP 124/77; PULSE 72; TEMP 97.4
[2019-01-09 06:51] LABS: Glucose,Whole Blood 110 mg/dL (75-99)
[2019-01-09 07:19] LABS: Calcium 8.5 mg/dL (8.4-10.2); Magnesium 1.4 mg/dL (1.6-2.3); Potassium 3.8 mmol/L (3.5-5.1)
[2019-01-09] MEDS: INSULIN ASPART (NovoLOG) 100 UNIT/ML VIAL SQ SCH ×2 (07:40→11:59)
[2019-01-09] MEDS: METOPROLOL TARTRATE 12.5 MG TAB PO SCH (08:26)
[2019-01-09] MEDS: ESCITALOPRAM 20 MG TAB PO SCH (08:26)
[2019-01-09] MEDS: ASPIRIN 81 MG PO SCH (08:26)
[2019-01-09] MEDS: SODIUM BICARBONATE TAB 650 MG TAB PO SCH (08:26)
[2019-01-09] MEDS: CARBIDOPA-LEVODOPA 25-100 MG 1 EACH TAB PO SCH (08:26)
[2019-01-09] MEDS: PANTOPRAZOLE 40 MG TABLET PO SCH (08:26)
[2019-01-09] MEDS ORDERED: FUROSEMIDE 10 MG/ML 4 ML VIAL IV STA (08:55)
--- NOTE | 2019-01-09 08:56 | P.PN ---
Subjective Patient is seen in follow for acute kidney injury. Creatinine was 4.03 on admission and peaked at 5.48 this admission - improved to 4.44 today. CK levels are trending down. She is maintained on normal saline at 75 mL an hour. Patient admits to good urine output. No vomiting or diarrhea. Oral intake is fair. Vital signs are stable. General: The patient appeared well nourished and normally developed. HEENT: Head exam is unremarkable. Neck is without jugular venous distension. LUNGS: Lungs are clear to auscultation and percussion. Breath sounds decreased. HEART: Rate and Rhythm are regular. First and second heart sounds normal. No murmurs, rubs or gallops. ABDOMEN: Abdominal exam reveals normal bowel sounds. Non-tender and non-diste nded. No evidence of peritonitis. EXTREMITITES: 1+ edema. Objective - Vital Signs Vital signs: Vital Signs Temp 97.4 F L 01/09/19 04:18 Pulse 72 01/09/19 04:18 Resp 16 01/09/19 04:18 BP 124/77 01/09/19 04:18 Pulse Ox 97 01/09/19 04:18 Intake & Output 01/08/19 01/09/19 01/09/19 18:59 06:59 18:59 Intake Total 660 625 Output Total 1000 800 Balance -340 -175 Intake: Intake, IV Titration 525 Amount Sodium Chloride 0.9% 1, 525 000 ml @ 75 mls/hr IV . [id number] [facility] Rx#:[id number] Oral 660 100 Output: Urine 1000 800 Other: Voiding Method Bedside Commode Bedside Commode Toilet # Voids 4 # Bowel Movements 1 1 - Labs CBC & Chem 7: 01/06/19 04:49 01/09/19 06:39 Labs: Abnormal Lab Results - Last 24 Hours (Table) 01/07/19 01/08/19 01/08/19 Range/Units 07:52 07:57 11:30 Chloride 111 H (98-107) mmol/L Carbon Dioxide 20 L (22-30) mmol/L BUN 71 H (7-17) mg/dL Creatinine 5.19 H (0.52-1.04) mg/dL Glucose (74-99) mg/dL POC Glucose (mg/dL) 147 H (75-99) mg/dL Magnesium (1.6-2.3) mg/dL Creatine Kinase 2540 H* (30-135) U/L Albumin (PEP) 2.61 L (3.80-4.90) g/dL Zfsif-4-Vafvfancx 0.50 L (0.60-1.00) g/dL Beta Globulins 0.46 L (0.60-1.30) g/dL Gamma Globulins 0.31 L (0.70-1.50) g/dL Complement C3 77.8 L (80.0-207.0) mg/dL 01/08/19 01/08/19 01/09/19 Range/Units 17:14 21:08 06:39 Chloride 113 H (98-107) mmol/L Carbon Dioxide 19 L (22-30) mmol/L BUN 71 H (7-17) mg/dL Creatinine 4.44 H (0.52-1.04) mg/dL Glucose 104 H (74-99) mg/dL POC Glucose (mg/dL) 115 H 141 H (75-99) mg/dL Magnesium 1.4 L (1.6-2.3) mg/dL Creatine Kinase 1360 H* (30-135) U/L Albumin (PEP) (3.80-4.90) g/dL Gapeu-8-Gkzuzfhwm (0.60-1.00) g/dL Beta Globulins (0.60-1.30) g/dL Gamma Globulins (0.70-1.50) g/dL Complement C3 (80.0-207.0) mg/dL 01/09/19 Range/Units 06:51 Chloride (98-107) mmol/L Carbon Dioxide (22-30) mmol/L BUN (7-17) mg/dL Creatinine (0.52-1.04) mg/dL Glucose (74-99) mg/dL POC Glucose (mg/dL) 110 H (75-99) mg/dL Magnesium (1.6-2.3) mg/dL Creatine Kinase (30-135) U/L Albumin (PEP) (3.80-4.90) g/dL Oxtrm-2-Qwzfwkqbb (0.60-1.00) g/dL Beta Globulins (0.60-1.30) g/dL Gamma Globulins (0.70-1.50) g/dL Complement C3 (80.0-207.0) mg/dL Assessment and Plan Plan: Assessment: 1. Acute kidney injury secondary to ATN secondary to rhabdomyolysis, hyp otension as well as nonsteroidals. Creatinine was 4.03 on admission and peaked at 5.48 this admission - 4.44 today. Need to rule out GN she has proteinuria on UA. UPC 0.6. Hep C IgG antibody noted to be positive. C3 level also low. No evidence of hydronephrosis noted on renal ultrasound. Urine eosinophils negative. Baseline creatinine near 1 from November 2018 per attending physician. 2. Rhabdomyolysis. CK levels trending down with IV hydration. 3. Systolic CHF with ejection fraction of 35-40%. 4. Metabolic acidosis secondary to acute kidney injury and IV fluids maintained on oral sodium bicarbonate. 5. Diabetes mellitus. 6. Hypomagnesemia from poor oral intake. Plan: Decreased rate of normal saline to 50 mL an hour. Lasix 40 mg IV once today. Continue to monitor renal function and urine output closely. No urgent need for renal replacement therapy at this time. Replace magnesium. 2 g IV today. Patient wants to hold off on kidney biopsy at this time since her renal function is improving. She is agreeable to get the biopsy done in the near future or sooner if renal function deteriorates again.
[2019-01-09] MEDS: MAGNESIUM SULFATE-D5W PMX 1 GM in DEXTROSE/WATER 1 100ML.BAG IVPB SCH ×2 (09:27→11:26)
[2019-01-09 11:27] LABS: Glucose,Whole Blood 128 mg/dL (75-99)
--- NOTE | 2019-01-09 12:24 | P.DS ---
Providers Date of admission: 01/04/19 01:04 Expected date of discharge: 01/09/19 Attending physician: Anu Castro Consults: 01/04/19 00:40 Consult Physician Stat Consulting Provider: Funmi Swann Consult Reason/Comments: ICU management Do you want consulting provider notified?: Already Contacted 01/04/19 05:27 Consult Physician Routine Consulting Provider: Parker Che Consult Reason/Comments: Elevated Troponin Do you want consulting provider notified?: Yes 01/04/19 05:32 Consult Physician Routine Consulting Provider: Deshawn Valentine Consult Reason/Comments: Acute Kidney Injury Do you want consulting provider notified?: Yes 01/06/19 14:17 Consult Physician Routine Consulting Provider: Leon Magana Consult Reason/Comments: inpatient rehab Do you want consulting provider notified?: Yes Primary care physician: [facility] Course: This is 68 years old female with past medical history significant for Parkinson disease presents to the emergency department after sustaining fall at home. Patient was able to make a phone call and call 911 few hours after falling on the floor and was brought into the emergency department with multiple bruises on her body worse on the left knee. Patient was alert awake and oriented at baseline mental status able to provide information and still at baseline mental status. Patient was on the floor for several hours and sure about the exact time of fall denied loss of consciousness and think that it was mechanical to start with. Patient denied head trauma. Patient had multiple falls in the past due to her Parkinson disease but nothing significant to the point where she was on the floor a few hours. Patient is denying and recent urinary tract infection recent upper respiratory symptoms including chest pain shortness breath nausea vomiting or nasal drainage. Patient denied any recent change in her medication. Patient is denying constitutional symptoms including night sweats low-grade fever or weight loss. Patient currently is improved and saying that she feels much improved since admission. Patient was admitted to the intensive care unit due to diagnosis of acute kidney injury with rhabdomyolysis and was started on aggressive IV hydration and electrolyte replacement protocol. Patient is denying tobacco alcohol or drug abuse 01/05: Patient continued to be hemodynamically stable no major events reported by nursing staff patient is sitting up in chair tolerating diet with Mena catheter in place and dark urine noted in the bag. Patient is denying chest pain, shortness breath, nausea, vomiting, dumping, dizziness or lightheadedness and asking if she can go home 01/06: Patient remains in the intensive care unit and is now in [address] with telemetry. We will add and consults for psychiatric evaluation of her current medications for bipolar disorder. Patient does state her tremor is better. Has been improved on hospital. Consult with Dr. Magana. Patient is to continue I&O and daily weights. She has had good urine output and 100 mL per hour. Heart rate 56, blood pressure 104/73, pulse ox 95% on 2 L nasal cannula. Repeat BUN 73, creatinine 5.36, sodium 135, potassium 4.3, chloride 109, CO2 18. Patient is followed by nephrology. Serology testing, ultrasound of the kidneys ordered. Patient is continued on IV fluids and oral sodium bicarb. Cardiology is following for stress cardiomyopathy versus ischemia. Patient to be started on Aaron and statins when rhabdomyolysis and kidney function improves. Continue Lopressor 12.5 mg twice daily. [employer] following on an as-needed basis. Echocardiogram reveals EF between 35 and 40%, moderate global hypokinesia of the LV, no aortic stenosis, mild mitral regurgitation, mild tricuspid regurgitation, mild pulmonary hypertension. Right ventricular systolic pressure 35.86. 01/07: The patient is now seen on the [facility] floor. Repeat lab work this morning reveals BUN is 68, creatinine 5.48, CK 5384. Renal ultrasound shows a suboptimal study without hydronephrosis identified bilaterally. Dr. Valentine has ordered serology testing. Patient may require dialysis. Discussed discharge planning with the patient. She was seen by Dr. Magana and may be a candidate for [facility] inpatient rehab. Social work is following. Insurance authorization process to be started. We will resume patient back on [facility] and family member will obtain this from her home. Patient will be taking her own home medication while in the hospital. 01/08: Patient denies any new complaints. She's had no vomiting or diarrhea. She is urinating sufficiently. Repeat BUN 71 and creatinine 5.19. CK is 2540. Patient is continued on IV fluids 75 mL/h. Patient has been afebrile, heart rate 59, blood pressure 102/60, pulse ox 98% on room air. Social work is working on authorization from her insurance for [facility] inpatient rehab. We will plan to transfer the patient wants us authorization is obtained. 01/09: Repeat BUN 71 creatinine 4.44, CK 1360, chloride 113, CO2 19. Patient has been ordered for 1 dose of IV Lasix today by Dr. Valentine. Patient has received authorization from her insurance to go to subacute rehab at [facility]. Patient will be taking Ingrezza and will take her own home medication. Patient will be having blood work done every other day at the intermediate. Patient will be discharge to [facility] today in stable condition. Discharge diagnoses: 1. Rhabdomyolysis. 2. Generalized weakness with frequent falls and multiple bruising. 3. Left knee swelling rule out effusion. 4. Acute kidney injury with metabolic acidosis secondary to above. 5. Leukocytosis without left shift. 6. Parkinsonism, followed by Dr. Horan. Patient will be resumed on Ingrezza from home. 7. Severe debility and deconditioning. 8. Hyperlipidemia. 9. Diabetes mellitus type 2. 10. Hypertension, presented with hypotension. 11. Cardiomyopathy of unclear etiology. Possible stress cardiomyopathy. Patient will need to be started on AARON inhibitor and statin when rhabdomyolysis and kidney function improves. 12. History of bipolar disorder Discharge plan: Inpatient rehab. [facility]. Impression and plan of care have been directed as dictated by the signing physician. Joi Bonds nurse practitioner acting as scribe for signing physician. Patient Condition at Discharge: Good Plan - Discharge Summary Discharge Rx Participant: No New Discharge Prescriptions: New Metoprolol Tartrate [Lopressor] 12.5 mg PO BID #60 tab INSULIN ASPART (NovoLOG) [NovoLOG (formulary)] 0 unit SQ ACHS vial Carbidopa-Levodopa 25-100 mg [Sinemet 25-100 mg] 0.5 each PO HS tab Carbidopa-Levodopa 25-100 mg [Sinemet 25-100 mg] 1 each PO 1600 tab Carbidopa-Levodopa 25-100 mg [Sinemet 25-100 mg] 0.5 each PO 1600,2200 tab Carbidopa-Levodopa 25-100 mg [Sinemet 25-100 mg] 1 each PO QAM tab Sodium Bicarbonate Tab 650 mg PO QID tab Continue Zolpidem [Ambien] 10 mg PO HS Escitalopram [Lexapro] 20 mg PO DAILY Pantoprazole Sodium [Protonix] 40 mg PO DAILY Aspirin EC [Ecotrin Low Dose] 81 mg PO DAILY LORazepam [Ativan] 1 mg PO TID PRN #9 tab PRN Reason: Anxiety Valbenazine Tosylate [Ingrezza] 80 mg PO DAILY #0 Discontinued Meloxicam [Mobic] 15 mg PO DAILY metFORMIN HCL [Glucophage] 500 mg PO BID Rosuvastatin Calcium [Crestor] 10 mg PO DAILY Olmesartan/Hydrochlorothiazide [Benicar Hct 40-25 mg Tablet] 1 tab PO DAILY Atenolol [Tenormin] 25 mg PO DAILY Carbidopa-Levodopa 25-100 mg [Sinemet 25-100] 1 dose PO DIRECTED Discharge Medication List Aspirin EC [Ecotrin Low Dose] 81 mg PO DAILY 01/03/19 [History] Escitalopram [Lexapro] 20 mg PO DAILY 01/03/19 [History] Pantoprazole Sodium [Protonix] 40 mg PO DAILY 01/03/19 [History] Zolpidem [Ambien] 10 mg PO HS 01/03/19 [History] Carbidopa-Levodopa 25-100 mg [Sinemet 25-100 mg] 0.5 each PO 1600,2200 tab 01/09/19 [Rx] Carbidopa-Levodopa 25-100 mg [Sinemet 25-100 mg] 0.5 each PO HS tab 01/09/19 [Rx] Carbidopa-Levodopa 25-100 mg [Sinemet 25-100 mg] 1 each PO 1600 tab 01/09/19 [Rx] Carbidopa-Levodopa 25-100 mg [Sinemet 25-100 mg] 1 each PO QAM tab 01/09/19 [Rx] INSULIN ASPART (NovoLOG) [NovoLOG (formulary)] 0 unit SQ ACHS vial 01/09/19 [Rx] LORazepam [Ativan] 1 mg PO TID PRN #9 tab 01/09/19 [Rx] Metoprolol Tartrate [Lopressor] 12.5 mg PO BID #60 tab 01/09/19 [Rx] Sodium Bicarbonate Tab 650 mg PO QID tab 01/09/19 [Rx] Valbenazine Tosylate [Ingrezza] 80 mg PO DAILY #0 01/09/19 [Rx] Follow up Appointment(s)/Referral(s): Alexei Liu MD [STAFF PHYSICIAN] - 2 Weeks Thang Johnson MD [Primary Care Provider] - 1 Week (at [facility]) Deshawn Valentine DO [STAFF PHYSICIAN] - 1 Week Ambulatory/Diagnostic Orders: Comprehensive Metabolic Panel [LAB.AMB] Location: None Selected Miscellaneous Lab Order [LAB.AMB] Location: None Selected Activity/Diet/Wound Care/Special Instructions: Encourage oral fluid intake Discharge Disposition: TRANSFER TO SNF/ECF
[2019-01-13] MEDS ORDERED: CARBIDOPA-LEVODOPA 25-100 MG 1 EACH TAB PO SCH ×2 (16:00→21:00)
== END 2019-01-09 14:25 | DRG 557 ==
LOC: EC 20:22 → 2SICU 01-04 01:04 → 3NMEDONC 01-06 18:55
PROVIDERS: ADMIT Internal Medicine; ATTEND Internal Medicine
DX: M62.82 Rhabdomyolysis (principal); N17.0 Acute kidney failure with tubular necrosis; E87.2 Acidosis; I51.81 Takotsubo syndrome; I50.22 Chronic systolic (congestive) heart failure; I95.9 Hypotension, unspecified; I11.0 Hypertensive heart disease with heart failure; G20 Parkinson's disease; E83.42 Hypomagnesemia; D72.829 Elevated white blood cell count, unspecified; E11.9 Type 2 diabetes mellitus without complications; E78.00 Pure hypercholesterolemia, unspecified; E78.5 Hyperlipidemia, unspecified; F31.9 Bipolar disorder, unspecified; G47.30 Sleep apnea, unspecified; K21.9 Gastro-esophageal reflux disease without esophagitis; M19.90 Unspecified osteoarthritis, unspecified site; M25.462 Effusion, left knee; R74.8 Abnormal levels of other serum enzymes; T39.395A Adverse effect of other nonsteroidal anti-inflammatory drugs [NSAID], initial encounter; Z79.1 Long term (current) use of non-steroidal anti-inflammatories (NSAID); Z79.82 Long term (current) use of aspirin; Z79.899 Other long term (current) drug therapy; Z79.84 Long term (current) use of oral hypoglycemic drugs; Z88.5 Allergy status to narcotic agent; Z88.8 Allergy status to other drugs, medicaments and biological substances; Z87.891 Personal history of nicotine dependence; Z91.81 History of falling; W18.30XA Fall on same level, unspecified, initial encounter; Y92.009 Unspecified place in unspecified non-institutional (private) residence as the place of occurrence of the external cause
CPT/HCPCS: 36415; 70450; 71045; 72125; 72170; 76770; 80048; 80053; 80074; 81001; 82272; 82550; 82570; 83605; 83690; 83735; 84100; 84156; 84165; 84443; 84484; 84550; 85025; 85610; 85730; 86038; 86160; 86162; 86225; 86255; 86334; 86335; 87086; 87205; 93005; 93306; 96360; 96361; 99285

== ENCOUNTER 2023-11-27 09:17 | Day surgery (SDC) | payer MEDICARE ==
[~2023-11-27 09:17] MED LIST: LIDOCAINE 1% (10MG/ML) FOR IV START INTRADERMA PRN
[2023-11-27 09:37] VITALS: TEMP 97.9
[2023-11-27] MEDS: LACTATED RINGERS 1,000 ML IV SCH (09:40)
[2023-11-27] MEDS: IV FLUID CONTINUATION 1,000 ML IV ONE (09:46)
[2023-11-27] MEDS ORDERED: PROPOFOL 10 MG/ML 20 ML VIAL IV ONE (10:20)
[2023-11-27] MEDS ORDERED: LIDOCAINE 2% (PF) 20 MG/ML 5 ML VIAL ONE (10:20)
--- NOTE | 2023-11-27 10:32 | P.PCN ---
Date of Procedure: 11/27/23 Procedure(s) Performed: BRIEF HISTORY: Patient is a 73-year-old, pleasant, white female scalp and upper anoscopy history of intermittent episodes of nausea vomiting for the last several months duration. She has history of GERD and has been on Protonix 40 mg daily as well as Zofran with no help. She is close an upper endoscopy to evaluate for the. PROCEDURE PERFORMED: Esophagogastroduodenoscopy with biopsy. PREOPERATIVE DIAGNOSIS: Chronic intermittent nausea vomiting. IV sedation per anesthesia. PROCEDURE: After informed consent was obtained, the patient was brought into the endoscopy unit. IV sedation was administered by Anesthesia under continuous monitoring. Initially the Olympus GIF-140 video endoscope was inserted into the mouth. Esophagus intubated without any difficulty. It was gradually advanced into the stomach and duodenum and carefully examined. The bulb and the second part of the duodenum appeared normal. The scope at this time was withdrawn to the stomach, adequately insufflated with air, and upon careful examination, mucosa of the antrum mild gastritis and biopsies were done from this area. In the proximal gastric body along the lesser curvature there was a 4 cm raised polypoid like area with thickened folds and polypoid appearance and multiple biopsies were done from this area to evaluate for adenoma. The rest of the, body, cardia and the fundus appeared normal. The scope was then withdrawn into the esophagus. Mild hiatal hernia noted. The GE junction was located at 39 cm from the incisors. The esophagus appeared normal. There were no erosions or ulcerations seen and the patient tolerated the procedure well. IMPRESSION: 1. 4 cm polypoid like area with thickened folds in the proximal gastric body along the lesser curvature s/p multiple biopsies. 2. Mild antral gastritis 3..Small hiatal hernia RECOMMENDATIONS: The findings of this examination were discussed with the patient as well as her family. She was advised to follow-up with the biopsy results. She will be seen in the office in 2 weeks and will discuss biopsy results. Meantime she will continue on Protonix 40 mg daily and Zofran as needed.
[2023-11-27 10:36] VITALS: PULSE 69
[2023-11-27 11:03] VITALS: BP 178/106; RESP 16
== END 2023-11-27 11:20 | disposition home or self-care (01) ==
LOC: ORWHC2ENDO 09:17
PROVIDERS: ATTEND Internal Medicine Gastroenterology
DX: K31.7 Polyp of stomach and duodenum (principal); K29.70 Gastritis, unspecified, without bleeding; K21.9 Gastro-esophageal reflux disease without esophagitis; K44.9 Diaphragmatic hernia without obstruction or gangrene; Z79.899 Other long term (current) drug therapy
CPT/HCPCS: 88305; 88342; 43239; J2704; J2001